=== PATIENT | female | born 1935 | race Caucasian/White ===

== ENCOUNTER 2021-01-13 06:52 | Emergency (ER) | payer OTHER ==
[~2021-01-13] VITALS: Ht 154.9 cm; Wt 62.1 kg
[2021-01-13 07:02] VITALS: BP_SYST 163; BP_SYST 187; BP_DIAS 79; BP_DIAS 85
--- NOTE | 2021-01-13 07:02 | NUR ---
TO BED AMBULATORY
--- NOTE | 2021-01-13 07:20 | NUR ---
PT REPORTS SHE HAD X1 EPISODE OF VOMITTING WITH A LARGE AMOUNT OF LOOSE DARK BLOOD THIS MORNING. DENIES CHEST PAIN, COUGH, SOB, BLEEDING, BRUSIES, RASH, EDEMA. NO ADVENTITIOUS SOUNDS IN LUNGS BILATERALLY. S1 & S2 PRESENT, NO EDEMA NOTED. PMH: HYPERLIPIDEMIA, HTN, ARTHRITIS. RX: LISINOPRIL, ASPIRIN, SIMVASTATIN, GLUCOSAMINE. NKA Addendum: 01/13/21 at 0813 by [email or web address] PT REPORTS SHE HAD X1 EPISODE OF COUGHING WITH A LARGE AMOUNT OF LOOSE DARK BLOOD THIS MORNING. DENIES CHEST PAIN, COUGH, SOB, BLEEDING, BRUSIES, RASH, EDEMA. NO ADVENTITIOUS SOUNDS IN LUNGS BILATERALLY. S1 & S2 PRESENT, NO EDEMA NOTED. PMH: HYPERLIPIDEMIA, HTN, ARTHRITIS. RX: LISINOPRIL, ASPIRIN, SIMVASTATIN, GLUCOSAMINE. NKA
--- NOTE | 2021-01-13 07:32 | NUR ---
Patient being evaluated by Dr. Ramos at bedside.
--- NOTE | 2021-01-13 07:45 | NUR ---
RAD AT BEDSIDE
[2021-01-13] MEDS ORDERED: NACL 0.9% 1,000 ML IV ONE ×2 (08:45→09:45)
--- NOTE | 2021-01-13 08:56 | NUR ---
CT consent signed by patient and placed in chart.
[2021-01-13 09:17] LABS: BASOPHILS % (AUTO) 0.4 % (0.0-2.0); EOSINOPHILS # (AUTO) 0.1 K/uL (0-0.4); EOSINOPHILS % (AUTO) 0.8 % (0.0-4.0); HEMATOCRIT 39.6 % (36-48); LYMPHOCYTES # (AUTO) 1.6 K/uL (2.5-16.5); LYMPHOCYTES % (AUTO) 22.7 % (20.5-51.1); MEAN CORPUSCULAR HEMOGLOBIN 31 pg (27-31); MEAN CORPUSCULAR HGB CONC 33 g/dL (33-37); MEAN CORPUSCULAR VOLUME 95.2 fL (80-94); MONOCYTES # (AUTO) 0.4 K/uL (0.8-1.0); MONOCYTES % (AUTO) 6.3 % (1.7-9.3); NEUTROPHILS # (AUTO) 4.8 K/uL (1.8-7.7); NEUTROPHILS % (AUTO) 69.8 % (42.2-75.2); PLATELET COUNT (AUTO) 202 K/uL (140-450); RED BLOOD CELL COUNT(AUTO) 4.16 MIL/uL (4.20-5.40); WHITE BLOOD COUNT (AUTO) 6.9 K/uL (4.8-10.8)
--- NOTE | 2021-01-13 09:20 | NUR ---
PT COMFORTABLY LYING IN LOCKED BED AT THE LOWEST POSITION X1 RAIL, WITH NO NEEDS. PT REPORTS SHE HAS NOT TAKEN HER HTN RX THIS MORNING BUT DENIES SX OF HEADACHE, SOB, FLUSHING, DIZZINESS, CHEST PAIN.
[2021-01-13 09:34] LABS: ANION GAP 13.4 (8-16); CARBON DIOXIDE 29.6 mmol/L (21-32); CHLORIDE 102 mmol/L (98-107); GLUCOSE 142 mg/dL (74-106); SODIUM SERUM 141 mmol/L (136-145); UREA NITROGEN, BLOOD 19 mg/dL (7-18)
--- NOTE | 2021-01-13 09:40 | NUR ---
PT WENT TO CT VIA [facility].
--- NOTE | 2021-01-13 10:05 | NUR ---
PT RETURNED FROM CT. LYING IN LOCKED BED AT THE LOWEST POSITION X1 RAIL, WITH NO NEEDS. ON PULSE OX AND B/P CUFF, WILL CONTINUE TO MONITOR.
[2021-01-13] MEDS ORDERED: LEVO500T98 PO (11:25)
--- NOTE | 2021-01-13 11:30 | NUR ---
SPOKE WITH PTS DAUGHTER REGARDING PT D/C AND PROGRAM ATTENDANT. DAUGHTER MADE AWARE THAT PT WILL BE WAITING IN ER LOBBY.
[2021-01-13 11:40] VITALS: BP 174/69
--- NOTE | 2021-01-13 11:40 | NUR ---
Patient discharged with v/s stable. Written and verbal after care instructions given and explained. Patient alert, oriented and verbalized understanding of instructions. Ambulatory with steady gait. All questions addressed prior to discharge. ID band removed. Patient advised to follow up with PMD. Rx of LEVOFLOAXCIN given. Patient educated on indication of medication including possible reaction and side effects. Opportunity to ask questions provided and answered.
== END 2021-01-13 11:40 | disposition home or self-care (01) ==
LOC: MED 06:52
DX: J47.9 Bronchiectasis, uncomplicated (principal); R04.2 Hemoptysis; I10 Essential (primary) hypertension
CPT/HCPCS: 36415; 71045; 71260; 80048; 85025; 96360; 99285; J7030; Q9967

== ENCOUNTER 2021-01-26 23:58 | Emergency (ER) | payer OTHER ==
[~2021-01-26] VITALS: Ht 154.9 cm; Wt 62.1 kg
[~2021-01-26 23:58] MED LIST: LEVO500T98 PO
[2021-01-27 00:04] VITALS: BP 208/92
--- NOTE | 2021-01-27 00:04 | NUR ---
TO BED AMBULATORY
[2021-01-27] MEDS ORDERED: CLONIDINE HYDROCHLORIDE 0.1 MG TAB PO ONE ×2 (00:15→01:30)
--- NOTE | 2021-01-27 00:16 | NUR ---
Dr. Sharma examining patient.
--- NOTE | 2021-01-27 00:30 | NUR ---
85 y/o female brought in by kristie to ED c/o of high blood pressure initially 180's at home then increased to 190's since am. During triage her bp was 200's no headache, no chest pain, and no sob noted. No pain noted afebrile. Patient had episode of nausea x 1 today no vomitting. Able to speak full sentence, daughter at bedside. All safety measures provided. PMH HTN NKDA
[2021-01-27 00:42] LABS: BASOPHILS # (AUTO) 0.1 K/uL (0.00-0.22); BASOPHILS % (AUTO) 0.6 % (0.0-2.0); EOSINOPHILS # (AUTO) 0.3 K/uL (0-0.4); HEMOGLOBIN 12.1 g/dL (12.0-16.0); LYMPHOCYTES # (AUTO) 3.6 K/uL (2.5-16.5); LYMPHOCYTES % (AUTO) 38.3 % (20.5-51.1); MEAN CORPUSCULAR HEMOGLOBIN 32 pg (27-31); MEAN CORPUSCULAR HGB CONC 34 g/dL (33-37); MEAN CORPUSCULAR VOLUME 94.4 fL (80-94); MONOCYTES # (AUTO) 0.8 K/uL (0.8-1.0); MONOCYTES % (AUTO) 8.4 % (1.7-9.3); NEUTROPHILS # (AUTO) 4.6 K/uL (1.8-7.7); NEUTROPHILS % (AUTO) 49.7 % (42.2-75.2); PLATELET COUNT (AUTO) 203 K/uL (140-450); RED BLOOD CELL COUNT(AUTO) 3.81 MIL/uL (4.20-5.40); RED CELL DISTRIBUTION WIDTH 14.3 % (11.6-13.7); WHITE BLOOD COUNT (AUTO) 9.3 K/uL (4.8-10.8)
--- NOTE | 2021-01-27 00:46 | NUR ---
X-Ray at bedside.
--- NOTE | 2021-01-27 00:50 | NUR ---
Pt ambulated to restroom
[2021-01-27 01:00] LABS: ALBUMIN 3.8 g/dL (3.4-5.0); ANION GAP 11.8 (8-16); ASPARTATE AMINOTRANSFERASE 18 U/L (15-37); CARBON DIOXIDE 26.8 mmol/L (21-32); CHLORIDE 103 mmol/L (98-107); GLUCOSE 136 mg/dL (74-106); POTASSIUM 3.6 mmol/L (3.5-5.1); SODIUM SERUM 138 mmol/L (136-145); TOTAL BILIRUBIN 0.5 mg/dL (0.0-1.0); UREA NITROGEN, BLOOD 22 mg/dL (7-18)
[2021-01-27] MEDS ORDERED: hydrALAZINE 20 MG/ML VIAL IVP ONE (01:25)
[2021-01-27] MEDS ORDERED: CLON0.1T15 PO (01:59)
[2021-01-27 02:30] VITALS: BP 111/50
--- NOTE | 2021-01-27 02:30 | NUR ---
Patient discharged with v/s stable. Written and verbal after care instructions given and explained. Patient alert, oriented and verbalized understanding of instructions. Ambulatory with steady gait. All questions addressed prior to discharge. ID band removed. Patient advised to follow up with PMD. Rx of clonidine given. Patient educated on indication of medication including possible reaction and side effects. Opportunity to ask questions provided and answered. Accompanied by daughter on d/c.
== END 2021-01-27 02:30 | disposition home or self-care (01) ==
LOC: MED 01-27 00:05
DX: I10 Essential (primary) hypertension (principal); Z79.899 Other long term (current) drug therapy
CPT/HCPCS: 36415; 71045; 80053; 84484; 85025; 93005; 99285

== ENCOUNTER 2021-02-23 06:00 | Inpatient (IN) | payer OTHER, SELFPAY ==
[~2021-02-23] VITALS: Ht 157.5 cm; Wt 62.1 kg
[~2021-02-23 06:00] MED LIST changes: +CLON0.1T15 PO
[2021-02-23 06:25] VITALS: BP 186/91
--- NOTE | 2021-02-23 06:31 | NUR ---
TO BED 7, AMBULATORY Addendum: 02/23/21 at 0722 by SREEDHAR Amendment undaline in EDM - 02/23/21 at 0723 by SREEDHAR RT AT BEDSIDE FOR BREATHING TREATMENT
--- NOTE | 2021-02-23 06:46 | NUR ---
85 Y/O FEMALE CAME TO THE ED WITH DAUGHTER FOR COUGH X DAYS. PT STATES THROAT PAIN OF 5/10 C/O COUGH. PER PT, SHE HAS A SCANTY AMOUNT OF BLOOD IN THE PHLEGM. DENIES N/V/D; SKIN IS PINK/WARM/DRY; AAOX4 WITH EVEN AND STEADY GAIT; LUNGS CLEAR BL; HR EVEN AND REGULAR; VSS; PATIENT POSITIONED FOR COMFORT; HOB ELEVATED; BEDRAILS UP X2; BED DOWN. ER MADE AWARE OF PT STATUS. PMH: HTN NKA Addendum: 02/23/21 at 0715 by [email or web address] COUGH X 3 DAYS
[2021-02-23] MEDS ORDERED: methylPREDNISolone SS 125 MG/2 ML VIAL IM ONE (06:50)
[2021-02-23] MEDS ORDERED: ALBUTEROL SULFATE/IPRATROPIU 3 ML SOL IH ONE (06:50)
--- NOTE | 2021-02-23 06:52 | NUR ---
EKG PERFORMED AT BEDSIDE. EKG READS SINUS RHYTHM @ 95
[2021-02-23 07:06] LABS: BASOPHILS # (AUTO) 0.1 K/uL (0.00-0.22); BASOPHILS % (AUTO) 0.6 % (0.0-2.0); EOSINOPHILS # (AUTO) 0.2 K/uL (0-0.4); EOSINOPHILS % (AUTO) 1.4 % (0.0-4.0); HEMATOCRIT 34.3 % (36-48); HEMOGLOBIN 11.2 g/dL (12.0-16.0); LYMPHOCYTES # (AUTO) 1.5 K/uL (2.5-16.5); MEAN CORPUSCULAR HEMOGLOBIN 30 pg (27-31); MEAN CORPUSCULAR HGB CONC 33 g/dL (33-37); MEAN CORPUSCULAR VOLUME 93.1 fL (80-94); MONOCYTES # (AUTO) 1.1 K/uL (0.8-1.0); MONOCYTES % (AUTO) 6.3 % (1.7-9.3); NEUTROPHILS # (AUTO) 13.9 K/uL (1.8-7.7); NEUTROPHILS % (AUTO) 82.7 % (42.2-75.2); PLATELET COUNT (AUTO) 218 K/uL (140-450); RED BLOOD CELL COUNT(AUTO) 3.68 MIL/uL (4.20-5.40); RED CELL DISTRIBUTION WIDTH 13.4 % (11.6-13.7); WHITE BLOOD COUNT (AUTO) 16.8 K/uL (4.8-10.8)
--- NOTE | 2021-02-23 07:14 | NUR ---
GIVEN REPORT TO ARRON LANG, FOR CONTINUITY OF CARE
--- NOTE | 2021-02-23 07:23 | NUR ---
RT AT BEDSIDE FOR BREATHING TREATMENT
[2021-02-23 07:25] LABS: ALBUMIN 3.4 g/dL (3.4-5.0); ANION GAP 11.7 (8-16); ASPARTATE AMINOTRANSFERASE 18 U/L (15-37); CHLORIDE 98 mmol/L (98-107); CREATININE 0.9 mg/dL (0.6-1.3); GLUCOSE 164 mg/dL (74-106); POTASSIUM 3.7 mmol/L (3.5-5.1); SODIUM SERUM 132 mmol/L (136-145); TOTAL BILIRUBIN 0.6 mg/dL (0.0-1.0); UREA NITROGEN, BLOOD 11 mg/dL (7-18)
--- NOTE | 2021-02-23 08:59 | NUR ---
PT TAKEN TO CT AT THIS TIME
[2021-02-23 09:06] LABS: PROTHROMBIN TIME 9.8 secs (10.8-13.4)
--- NOTE | 2021-02-23 09:22 | NUR ---
PT CANNOT URINATE AT THIS TIME
--- NOTE | 2021-02-23 09:45 | NUR ---
PATIENT AMBULATED TO RESTROOM AND URINE SPECIMEN COLLECTED
[2021-02-23 10:16] LABS: APPEARANCE,URINE HAZY (CLEAR); BILIRUBIN,URINE NEGATIVE (NEGATIVE); BLOOD, URINE TRACE-I (NEGATIVE); COLOR,URINE YELLOW (YELLOW); LEUKOCYTE ESTERASE ,URINE 1+ (NEGATIVE); NITRITE, URINE POSITIVE (NEGATIVE); PH,URINE 5.5 (5.0-9.0); UGLUCOSE 1+ (NEGATIVE)
[2021-02-23] MEDS ORDERED: LISI40TA12 PO (11:27)
[2021-02-23] MEDS ORDERED: ASPI-1884 PO (11:27)
[2021-02-23] MEDS ORDERED: SIMV20TA1 PO (11:27)
[2021-02-23] MEDS ORDERED: cefTRIAXone 1,000 MG VIAL ONE (11:28)
[2021-02-23] MEDS ORDERED: ONDANSETRON 4 MG/2 ML VIAL IVP PRN (11:45)
[2021-02-23] MEDS ORDERED: ALBUTEROL 0.083% 2.5 MG/3 ML NEBU INH PRN (11:45)
[2021-02-23] MEDS ORDERED: ACETAMINOPHEN 325 MG TAB PO PRN (11:45)
[2021-02-23] MEDS: ALBUTEROL 0.083% 2.5 MG/3 ML NEBU INH SCH ×2 (12:33→19:57)
[2021-02-23] MEDS: IPRATROPIUM 0.02% 0.5 MG/2.5 ML NEBU INH SCH ×2 (13:00→19:57)
--- NOTE | 2021-02-23 14:00 | NUR ---
RECEIVED REPORT FROM ER NURSE PATIENT IS AAOX4 ON ROOM AIR AMBULATORY WITH CANE, SKIN INTACT , CONTINENT, WITH BREATHING TREATMENT COVID 19 EYAL NEGATIVE, IV INTACT ON LEFT AC SALINE LOCK, VITAL SIGNS STABLE.
--- NOTE | 2021-02-23 14:33 | NUR ---
DC PLANNIN85 YEAR OLD FEMALE PATIENT WAS ADMITTED FROM HOME WITH A DX OF PNEUMONIA PT HAS A HX OF TB, AND HTN CXR SHOWED NO EVIDENCE FOR ACUTE CARDIOPULMONARY DISEASE. CT CHEST NO PE. RAPID COVID TEST NEGATIVE. ADMINISTERED IV ABX ROCEPHIN AND AZITHROMYCIN AND CONTINUE HOME MEDS. DC PLAN TO GO HOME WHEN STABLE CM TO FOLLOW
--- NOTE | 2021-02-23 14:57 | NUR ---
Patient will be admitted to [facility]. Admited to TELE. Will go to room 121A. Belongings list completed. Report to JADIEL LANG.
[2021-02-23] MEDS ORDERED: AZITHROMYCIN 500 MG INJ VIAL IV ONE (14:59)
[2021-02-23] MEDS: AZITHROMYCIN 500 MG in DEXTROSE 5% 250 ML IV SCH (15:42)
[2021-02-23 16:30] VITALS: BP 156/60
--- NOTE | 2021-02-23 16:30 | NUR ---
RECEIVED PT FROM THE UNIT VIA [facility] PATIENT AMBULATORY, ASSISTED TO BED ORIENTED TO ROOM, CHECK VITAL SIGNS BP 156/60 WI 93 RR 20 TEMP 98 OXYGEN SATURATION 95%. PT IS STABLE.
--- NOTE | 2021-02-23 16:58 | NUR ---
MRSA OF THE NARES DONE AND SENT TO LAB.
--- NOTE | 2021-02-23 19:20 | NUR ---
RECEIVED PT FROM AM SHIFT RN. ON BED SITTING AO X4, NO DISTRESS, RESPIRATION EVEN UNLABORED. CALL LIGHT WITHIN REACH. WILL CONTINUE TO MONITOR.
--- NOTE | 2021-02-23 19:42 | NUR ---
ENDORSED TO TRAINS DISPATCHER SUPERVISOR FOR CONTINUITY OF CARE. PT STABLE
[2021-02-23 20:00] VITALS: BP 138/52
--- NOTE | 2021-02-23 20:02 | NUR ---
PT SEEN AND ASSESSED. FOUND PT ON ROOM AIR, SPO2 97%. PT IS IN NO RESPIRATORY DISTRESS AT THIS TIME. HHN TX GIVEN, PT TOLERATED TX WELL, NO ADVERSE REACTION. WILL CONTINUE TO MONITOR PT.
[2021-02-23] MEDS: SIMVASTATIN 20 MG TAB PO SCH (21:15)
--- NOTE | 2021-02-23 21:15 | NUR ---
SCHEDULED MEDICATION ADMINISTERED ORDERED. DENIES PAIN. CALL LIGHT WITHIN REACH.
[2021-02-24] VITALS: BP 148/67
[2021-02-24] MEDS: IPRATROPIUM 0.02% 0.5 MG/2.5 ML NEBU INH SCH ×4 (00:40→19:15)
[2021-02-24] MEDS: ALBUTEROL 0.083% 2.5 MG/3 ML NEBU INH SCH ×4 (00:40→19:15)
--- NOTE | 2021-02-24 00:44 | NUR ---
PT IS IN NO RESPIRATORY DISTRESS AT THIS TIME. HHN TX GIVEN, PT TOLERATED TX WELL, NO ADVERSE REACTION. WILL CONTINUE TO MONITOR PT.
--- NOTE | 2021-02-24 02:00 | NUR ---
MADE ROUNDS PT SLEEPING IN NO ACUTE DISTRESS .
[2021-02-24 04:00] VITALS: BP 148/61
[2021-02-24 06:06] LABS: ALBUMIN 3.1 g/dL (3.4-5.0); ANION GAP 10.7 (8-16); ASPARTATE AMINOTRANSFERASE 18 U/L (15-37); CARBON DIOXIDE 27.3 mmol/L (21-32); CHLORIDE 96 mmol/L (98-107); CREATININE 0.9 mg/dL (0.6-1.3); GLUCOSE 154 mg/dL (74-106); MAGNESIUM 1.8 mg/dL (1.8-2.4); SODIUM SERUM 130 mmol/L (136-145); TOTAL BILIRUBIN 0.3 mg/dL (0.0-1.0); UREA NITROGEN, BLOOD 14 mg/dL (7-18)
[2021-02-24 06:19] LABS: HEMATOCRIT 31.7 % (36-48); HEMOGLOBIN 10.5 g/dL (12.0-16.0); LYMPHOCYTES # (AUTO) 1.1 K/uL (2.5-16.5); LYMPHOCYTES % (AUTO) 8.6 % (20.5-51.1); MEAN CORPUSCULAR HEMOGLOBIN 31 pg (27-31); MEAN CORPUSCULAR HGB CONC 33 g/dL (33-37); MEAN CORPUSCULAR VOLUME 93.6 fL (80-94); MONOCYTES # (AUTO) 0.5 K/uL (0.8-1.0); NEUTROPHILS # (AUTO) 11.2 K/uL (1.8-7.7); NEUTROPHILS % (AUTO) 87.4 % (42.2-75.2); PLATELET COUNT (AUTO) 219 K/uL (140-450); RED BLOOD CELL COUNT(AUTO) 3.38 MIL/uL (4.20-5.40); RED CELL DISTRIBUTION WIDTH 13.5 % (11.6-13.7); WHITE BLOOD COUNT (AUTO) 12.8 K/uL (4.8-10.8)
--- NOTE | 2021-02-24 07:24 | NUR ---
ENDORSED TO AM SHIFT RN FOR CONTINUITY OF CARE IN STABLE CONDITION.
--- NOTE | 2021-02-24 07:25 | NUR ---
PT RECEIVED FROM MANUFACTURING TECHNICIAN RN. PT RESTING IN BED EYES CLOSED NO S/S OF DISTRESS. IV IS DRY CLEAN AND INTACT. CALL LIGHT IS WITHIN REACH ALL SAFETY MEASURES ARE IN PLACE.
[2021-02-24 08:00] VITALS: BP 147/54
[2021-02-24] MEDS: ASPIRIN 81 MG TAB.CHEW PO SCH (08:32)
[2021-02-24] MEDS: lisinopriL 20 MG TAB PO SCH (08:33)
[2021-02-24] MEDS: ENOXAPARIN 40 MG/0.4 ML SYR SUBQ SCH (08:37)
--- NOTE | 2021-02-24 08:40 | NUR ---
MEDICATIONS GIVEN PER MD ORDER. PT EDUCATED. PT VERBALIZED UNDERSTANDING.PT TOLERATED WELL. NO S/S OF DISTRESS. PT IN BED EATING BREAKFAST. DENIES PAIN AT THIS TIME. CALL LIGHT WITHIN REACH.
[2021-02-24] MEDS ORDERED: BENZONATATE 100 MG CAPLF PO SCH (09:00)
--- NOTE | 2021-02-24 09:02 | NUR ---
PATIENT HAS BEEN SCREENED AND CATEGORIZED MODERATE NUTRITION RISK. PATIENT WILL BE SEEN WITHIN 3-5 DAYS OF ADMISSION. 02/25/21 02/27/[address]
--- NOTE | 2021-02-24 10:11 | NUR ---
MD AT BEDSIDE EXPLAINING PLAN OF CARE.
--- NOTE | 2021-02-24 11:15 | NUR ---
SPUTUM CULTURE COLLECTED PER MD ORDER. SENT TO LAB
--- NOTE | 2021-02-24 11:28 | NUR ---
PT PROVIDED NEW GOWN , CLEANSINGS WIPES AND ORAL CARE . PT PERFORMED INDEPENDENTLY AND TOLERATED WELL. NO S/S OF DISTRESS
--- NOTE | 2021-02-24 11:34 | NUR ---
PT AMBULATED TO RESTROOM TOLERATED WELL. STAND BY ASSISTANCE PROVIDED. PT BACK IN BED WATCHING [employer]AT MAKING VIDEOS. ALL SAFETY MEASURES ARE IN PLACE.
--- NOTE | 2021-02-24 11:56 | NUR ---
PT ASSISTED WITH PUTTING ON LEADS FOR TELE. PT EDUCATED ON IMPORTANCE OF KEEPING THEM ON.
--- NOTE | 2021-02-24 12:20 | NUR ---
PT IN BED EATIN TOLERATING WELL. DENIES PAIN AT THIS TIME
[2021-02-24 13:00] VITALS: BP 141/58
[2021-02-24] MEDS: AZITHROMYCIN 500 MG in DEXTROSE 5% 250 ML IV SCH (13:29)
--- NOTE | 2021-02-24 13:30 | NUR ---
MEDICATIONS GIVEN PER MD ORDER. PT EDUCATED. PT VERBALIZED UNDERSTANDING.PT TOLERATED WELL. NO S/S OF DISTRESS. PT RESTING IN BED ON SIDE
--- NOTE | 2021-02-24 14:15 | NUR ---
PTS IV SITE ASSESSED. CLEAR DRY AND INTACT. PT TOLERATING ANTIBIOTIC WELL DENIES PAIN , ITCHING, SOB, OR RASHES.
[2021-02-24 16:00] VITALS: BP 126/66
--- NOTE | 2021-02-24 16:05 | NUR ---
PT HOA ON EDGE OF ON CELL PHONE PT REQUEST WARM BLANKET . BLANKET PROVIDED
--- NOTE | 2021-02-24 17:28 | NUR ---
PT OFFERED SNACKS PT REFUSED. PT IN BED RESTING COMFORTABLY. NO S/S OF DISTRESS.
--- NOTE | 2021-02-24 19:05 | NUR ---
PT ENDORSED TO SUPERVISOR WET ROOM RN FOR CONTINUITY OF CARE.
--- NOTE | 2021-02-24 19:14 | NUR ---
RECEIVED PT FROM MORNING SHIFT RN. SITTING ON BED JUST FINISHED HER DINNER ATE 95%. NO DISTRESS/SOB. IV SITE ON THE LAC INTACT. SKIN WARM AND DRY TO TOUCH CALL LIGHT WITHIN REACH.
[2021-02-24 20:00] VITALS: BP 155/61
[2021-02-24] MEDS: guaiFENesin 600 MG TABER PO SCH (20:40)
[2021-02-24] MEDS: SIMVASTATIN 20 MG TAB PO SCH (20:40)
--- NOTE | 2021-02-24 20:40 | NUR ---
DUE MEDS GIVEN PER MD. PT ON BED RESTING COMFORTABLY. NO SHORTNESS OF BREATH. CALL LIGHT WITHIN REACH
[2021-02-25] VITALS: BP 146/63
[2021-02-25] MEDS: IPRATROPIUM 0.02% 0.5 MG/2.5 ML NEBU INH SCH ×2 (01:00→07:46)
[2021-02-25] MEDS: ALBUTEROL 0.083% 2.5 MG/3 ML NEBU INH SCH ×2 (01:00→07:47)
[2021-02-25 04:00] VITALS: BP 157/67
[2021-02-25 06:11] LABS: ANION GAP 8.3 (8-16); CARBON DIOXIDE 29.9 mmol/L (21-32); CHLORIDE 102 mmol/L (98-107); GLUCOSE 109 mg/dL (74-106); POTASSIUM 4.2 mmol/L (3.5-5.1); SODIUM SERUM 136 mmol/L (136-145); UREA NITROGEN, BLOOD 22 mg/dL (7-18)
[2021-02-25 06:48] LABS: BASOPHILS % (AUTO) 0.4 % (0.0-2.0); EOSINOPHILS # (AUTO) 0.2 K/uL (0-0.4); EOSINOPHILS % (AUTO) 1.3 % (0.0-4.0); HEMATOCRIT 33.5 % (36-48); LYMPHOCYTES # (AUTO) 2.8 K/uL (2.5-16.5); LYMPHOCYTES % (AUTO) 23.8 % (20.5-51.1); MEAN CORPUSCULAR HEMOGLOBIN 31 pg (27-31); MEAN CORPUSCULAR HGB CONC 33 g/dL (33-37); MEAN CORPUSCULAR VOLUME 92.7 fL (80-94); MONOCYTES % (AUTO) 8.8 % (1.7-9.3); NEUTROPHILS # (AUTO) 7.8 K/uL (1.8-7.7); NEUTROPHILS % (AUTO) 65.7 % (42.2-75.2); PLATELET COUNT (AUTO) 240 K/uL (140-450); RED BLOOD CELL COUNT(AUTO) 3.61 MIL/uL (4.20-5.40); RED CELL DISTRIBUTION WIDTH 13.9 % (11.6-13.7); WHITE BLOOD COUNT (AUTO) 11.8 K/uL (4.8-10.8)
--- NOTE | 2021-02-25 07:15 | NUR ---
ENDORSED TO THE MORNING SHIFT RN FOR CONTINUITY OF CARE IN STABLE CONDITION.
--- NOTE | 2021-02-25 07:17 | NUR ---
RECEIVED BEDSIDE REPORT FROM STEREO COMPILER NURSE FOR CONTINUITY OF CARE. PATIENT IS AO X4, ABLE TO MAKE NEEDS KNOWN. RESPIRATIONS EVEN AND UNLABORED. ON ROOM AIR AND NO DISTRESS NOTED. SKIN IS INTACT, WARM, AND DRY. IV SITE ON LAC 20 G SALINE LOCKED. INTACT AND PATENT. AMB WITH CANE. PLAN OF CARE DISCUSSED. SAFETY PRECAUTIONS IN PLACE. CALL LIGHT WITHIN REACH. WILL CONTINUE TO MONITOR.
[2021-02-25 08:00] VITALS: BP 150/75
[2021-02-25] MEDS: ASPIRIN 81 MG TAB.CHEW PO SCH (08:37)
[2021-02-25] MEDS: lisinopriL 20 MG TAB PO SCH (08:37)
[2021-02-25] MEDS: guaiFENesin 600 MG TABER PO SCH (08:38)
[2021-02-25] MEDS: ENOXAPARIN 40 MG/0.4 ML SYR SUBQ SCH (08:38)
--- NOTE | 2021-02-25 08:45 | NUR ---
ALL SCHEDULE MEDS GIVEN. PT IS STABLE. NO DISTRESS NOTED. WILL CONTINUE TO MONITOR.
[2021-02-25] MEDS ORDERED: LEVO500T98 PO (09:04)
[2021-02-25] MEDS ORDERED: GUAI-791 PO (09:04)
[2021-02-25] MEDS ORDERED: levaquin (09:04)
--- NOTE | 2021-02-25 09:04 | NUR ---
NEW DISCHARGE ORDERS RECEIVED. PATIENT AND PATIENT'S FAMILY ALREADY NOTIFIED BY .
[2021-02-25 10:04] VITALS: BP 150/75
--- NOTE | 2021-02-25 10:25 | NUR ---
DISCUSSED DISCHARGE INSTRUCTIONS WITH PATIENT. PATIENT VERBALIZED UNDERSTANDING AND SIGNED THE FORMS. AWAITING FOR DAUGHTER TO PICK PATIENT UP.
--- NOTE | 2021-02-25 10:41 | NUR ---
PT DISCHARGED OFF THE UNIT. DAUGHTER PICKED UP PATIENT AT THE FRONT LOBBY. PT STABLE PRIOR TO DISCHARGE.
== END 2021-02-25 10:40 | disposition home or self-care (01) | DRG 140 ==
LOC: MED 06:00 → MTU 11:48
PROVIDERS: ADMIT Internal Medicine; ATTEND Internal Medicine
DX: J47.0 Bronchiectasis with acute lower respiratory infection (principal); J15.9 Unspecified bacterial pneumonia; J47.1 Bronchiectasis with (acute) exacerbation; N39.0 Urinary tract infection, site not specified; I10 Essential (primary) hypertension; Z86.11 Personal history of tuberculosis; R91.1 Solitary pulmonary nodule; Z20.822 Contact with and (suspected) exposure to COVID-19
CPT/HCPCS: 36415; 71045; 71275; 80048; 80053; 81001; 83605; 83735; 83880; 84484; 85025; 85379; 85610; 85730; 87040; 87070; 87081; 87086; 87186; 87205; 93005; 94640; 96365; 96372; 96375; 99285; J0456; J0696; J1650; J2930; J7060; J7613; J7644; Q9967

== ENCOUNTER 2021-12-22 20:35 | Inpatient (IN) | payer OTHER, MEDICARE, SELFPAY ==
[~2021-12-22] VITALS: Ht 157.5 cm; Wt 63.5 kg
[~2021-12-22 20:35] MED LIST changes: +ASPI-1749 PO; -CLON0.1T15 PO; +GUAI-791 PO; +LEVO-315 PO; -LEVO500T98 PO; +LISI40TA12 PO; +SIMV20TA1 PO; +levaquin
[2021-12-22 20:38] VITALS: BP 183/74
--- NOTE | 2021-12-22 21:57 | NUR ---
PATIENT PRESENTS TO ED WITH bloody cough . PT STATES SHE WAS COUGHING AND COUGHED BLOOD IN SINK. BIB DAUGHTER FROM HOME. DENIES N/V/D; SKIN IS PINK/WARM/DRY; AAOX4 WITH AMBULATORY WITH CANE; LUNGS CLEAR BL; HR EVEN AND REGULAR; PT DENIES ANY FEVER, CP, SOB, OR COUGH AT THIS TIME; PATIENT STATES PAIN OF 0/10 AT THIS TIME; VSS; PATIENT POSITIONED FOR COMFORT; HOB ELEVATED; BEDRAILS UP X2; BED DOWN. DAUGHTER AT BEDSIDE ER MD MADE AWARE OF PT STATUS. PMH:HTN , ARTHIRITIS RX: SIMVASTATIN, LISINOPRIL, ASPIRIN
--- NOTE | 2021-12-22 22:00 | NUR ---
XRAY AT BEDSIDE
[2021-12-22] MEDS ORDERED: NACL 0.9% 1,000 ML IV ONE (22:40)
[2021-12-22] MEDS ORDERED: methylPREDNISolone SS 125 MG in WATER STERILE 2 ML IV ONE (22:40)
[2021-12-22 22:41] LABS: BASOPHILS # (AUTO) 0.2 K/uL (0.00-0.22); BASOPHILS % (AUTO) 2.9 % (0.0-2.0); EOSINOPHILS % (AUTO) 0.6 % (0.0-4.0); LYMPHOCYTES % (AUTO) 12.9 % (20.5-51.1); MEAN CORPUSCULAR HEMOGLOBIN 31 pg (27-31); MEAN CORPUSCULAR HGB CONC 33 g/dL (33-37); MEAN CORPUSCULAR VOLUME 93.6 fL (80-94); MONOCYTES # (AUTO) 0.7 K/uL (0.8-1.0); MONOCYTES % (AUTO) 8.4 % (1.7-9.3); NEUTROPHILS % (AUTO) 75.2 % (42.2-75.2); PLATELET COUNT (AUTO) 165 K/uL (140-450); RED BLOOD CELL COUNT(AUTO) 3.85 MIL/uL (4.20-5.40); RED CELL DISTRIBUTION WIDTH 14.3 % (11.6-13.7)
[2021-12-22 22:58] LABS: ANION GAP 14.6 (8-16); CARBON DIOXIDE 27.3 mmol/L (21-32); CHLORIDE 102 mmol/L (98-107); CREATININE 0.9 mg/dL (0.6-1.3); GLUCOSE 129 mg/dL (74-106); POTASSIUM 3.9 mmol/L (3.5-5.1); SODIUM SERUM 140 mmol/L (136-145); UREA NITROGEN, BLOOD 19 mg/dL (7-18)
[2021-12-22] MEDS ORDERED: methylPREDNISolone SS 125 MG/2 ML VIAL ONE (23:49)
[2021-12-23] VITALS (7 sets, daily range): BP systolic 140–181; BP diastolic 56–95
[2021-12-23] MEDS ORDERED: ENALAPRILAT 2.5 MG/2 ML VIAL IVP ONE (00:15)
--- NOTE | 2021-12-23 01:15 | NUR ---
daughter left bedside. pt sleeping with x2 side rails up
[2021-12-23] MEDS ORDERED: PIPERACILLIN/TAZOBACTAM 3.375 GM in DEXTROSE 5% 50 ML IV ONE (01:20)
--- NOTE | 2021-12-23 01:27 | NUR ---
TALKED TO ADMITTING AND CONFIRMED ADMISSION GOES TO [facility] AND PAGED DR MANCIA FOR ADMISSION
[2021-12-23] MEDS ORDERED: PIPERACILLIN/TAZOBACTAM 3.375 GM VIAL IV ONE (01:53)
[2021-12-23] MEDS ORDERED: HYDROcodone/APAP 5/325 MG 1 TAB TAB PO PRN (02:00)
[2021-12-23] MEDS ORDERED: ACETAMINOPHEN 325 MG TAB PO PRN (02:00)
--- NOTE | 2021-12-23 02:19 | NUR ---
Patient appears to be resting comfortably in bed. lying lateral .Vital Signs within normal limits. Respirations even and unlabored.
--- NOTE | 2021-12-23 03:13 | NUR ---
pt ketty swab given to poultry farm laborer vandana. changed pt diaper . pt iv lines running and intact
--- NOTE | 2021-12-23 04:50 | NUR ---
RECEIVED PATIENT FROM ER. PATIENT AMBULATORY FROM WHEELCHAIR TO BED, USING CANE, GAIT STEADY. BREATHING EVEN AND UNLABORED ON ROOM AIR. RESUMED IV FLUIDS AT DESIRED RATE. ORIENTED TO ROOM AND SAFETY MEASURES INITIATED, ADVISED TO USE CALL LIGHT FOR ANY NEEDS. BP ELEVATED AT 175 SBP, ALLOWED TO REST FOR AWHILE AND WILL RECHECK VITALS. ADMISSION DOCUMENTATIONS DONE. MRSA SWAB DONE AND SENT TO LAB.
[2021-12-23] MEDS ORDERED: PIPERACILLIN/TAZOBACTAM 3.375 GM in DEXTROSE 5% 50 ML IV SCH (05:00)
--- NOTE | 2021-12-23 05:06 | NUR ---
Patient will be admitted to care of DR. MANCIA. Admited to MED SURG. Will go to room 106B. Belongings list completed. Report to
--- NOTE | 2021-12-23 05:10 | NUR ---
The patient's care was reviewed and supervised by MEHREEN NEFF RN.
[2021-12-23] MEDS ORDERED: PIPERACILLIN/TAZOBACTAM 2.25 GM VIAL IV ONE (06:09)
--- NOTE | 2021-12-23 06:15 | NUR ---
PATIENT BP RECHECKED AND STILL ELEVATED AT 181/62, MD MADE AWARE, AWAITING ORDERS. PRN TYLENOL GIVEN FOR HEADACHE. WILL CONTINUE TO MONITOR PATIENT.
[2021-12-23] MEDS: PIPERACILLIN/TAZOBACTAM 2.25 GM in DEXTROSE 5% 50 ML IV SCH ×4 (06:24→23:42)
--- NOTE | 2021-12-23 07:09 | NUR ---
PATIENT HAS BEEN SCREENED AND CATEGORIZED LOW NUTRITION RISK. PATIENT WILL BE SEEN WITHIN 7 DAYS OF ADMISSION. 12/30/21 LINDA WREN MS, RDN
--- NOTE | 2021-12-23 08:01 | NUR ---
RECEIVED PATIENT, AOX4, RESPIRATIONS EVEN AND UNLABORED ON ROOM AIR. DENIES HEMOPTYSIS SINCE LAST NIGHT. NOT ABLE TO EXPECTORATE ANY SPUTUM. DENIES PAIN/FEVER/CHILLS AT THIS TIME. BLOOD PRESSURE ELEVATED, PRN MEDICATION GIVEN. AMBULATING INDEPENDENTLY IN ROOM, IV FLUIDS INFUSING. WILL CONTINUE TO MONITOR.
[2021-12-23] MEDS: lisinopriL 20 MG TAB PO SCH (08:47)
[2021-12-23] MEDS: BENZONATATE 100 MG CAPLF PO SCH ×3 (08:48→16:08)
[2021-12-23] MEDS ORDERED: DOXYCYCLINE 100 MG in DEXTROSE 5% 100 ML IV SCH (09:00)
--- NOTE | 2021-12-23 11:00 | NUR ---
PATIENT TRANSFERRED TO ROOM 114 FOR ISOLATION, RULE OUT TB. PATIENT STILL UNABLE TO PROVIDE SPUTUM, COUGHING BUT WITHOUT ANY PHLEGM.
[2021-12-23] MEDS ORDERED: LABETALOL 100 MG/20 ML VIAL IV PRN (11:10)
--- NOTE | 2021-12-23 12:31 | NUR ---
RESTING COMFORTABLY IN BED, TOLERATING MEALS WELL WITH NO NAUSEA/VOMITING. IV ANTIBIOTICS INFUSING. INSTRUCTED PATIENT TO CALL FOR ASSISTANCE, PATIENT VERBALIZED UNDERSTANDING. BLOOD PRESSURE STABLE AT THIS TIME. WILL CONTINUE TO MONITOR.
--- NOTE | 2021-12-23 18:56 | NUR ---
PATIENT IS RESTING IN BED, SAYS SHE COUGHED EARLIER BUT STILL HAS NO PHLEGM PRODUCTION. DENIES PAIN. ANTIBIOTICS INFUSING. TOLERATING DINNER WELL, NO NAUSEA/VOMITING. WILL ENDORSE TO NIGHT RN.
--- NOTE | 2021-12-23 19:20 | NUR ---
RECEIVED REPORT FROM MORNING RN. PATIENT RESTING ON BED, RESPIRATION EVEN AND UNLABORED ON ROOM AIR. NO COUGHING OBSERVED. NO PAIN COMPLAINTS. WILL CONTINUE TO MONITOR PATIENT.
[2021-12-23] MEDS: SIMVASTATIN 20 MG TAB PO SCH (20:15)
--- NOTE | 2021-12-23 20:25 | NUR ---
PT SITTING IN BED, ANTERIOR AUSCULTATION REVEALED BS CLEAR THROUGHOUT, CHEST RISE SYMMETRICAL, NO SIGNS OF RESPIRATORY DISTRESS NOTED AT THIS TIME. PT IS CURRENTLY SATING 99% ON RA. INSTRUCTED PT TO EXPECTORATE SPONTANEOUSLY INTO SPUTUM SAMPLE CUP. NO PHLEGM PRESENT SMALL AMOUNT OF CLEAR THIN SALIVA NOTED. CUP LEFT AT BED SIDE NOTIFIED RN WILL CONTINUE TO MONITOR.
--- NOTE | 2021-12-23 22:02 | NUR ---
CALLED AND INFORMED RT OF ORDER TO INDUCE SPUTUM. RT CAME AND GOT A LITTLE SPECIMEN SAMPLE WHICH WAS SENT TO LAB. WILL TRY AGAIN AT 6 AM PER RT. PATIENT TOLERATED WELL. WILL CONTINUE TO MONITOR AND ASSESS PATIENT.
--- NOTE | 2021-12-23 22:30 | NUR ---
AT 22:02, SPUTUM INDUCED AND SPUTUM SAMPLE OBTAINED AND TAKEN TO THE LAB. FOR ANALYSIS.
[2021-12-24 04:00] VITALS: BP 164/61
[2021-12-24] MEDS ORDERED: PIPERACILLIN/TAZOBACTAM 2.25 GM VIAL IV ONE (05:18)
[2021-12-24] MEDS: PIPERACILLIN/TAZOBACTAM 2.25 GM in DEXTROSE 5% 50 ML IV SCH ×4 (05:31→23:18)
[2021-12-24] MEDS: CLONIDINE HYDROCHLORIDE 0.1 MG TAB PO PRN (05:40)
[2021-12-24 07:04] LABS: BASOPHILS % (AUTO) 0.5 % (0.0-2.0); EOSINOPHILS # (AUTO) 0.1 K/uL (0-0.4); EOSINOPHILS % (AUTO) 0.6 % (0.0-4.0); HEMATOCRIT 33.9 % (36-48); HEMOGLOBIN 11.2 g/dL (12.0-16.0); LYMPHOCYTES # (AUTO) 2.4 K/uL (2.5-16.5); LYMPHOCYTES % (AUTO) 28.1 % (20.5-51.1); MEAN CORPUSCULAR HEMOGLOBIN 31 pg (27-31); MEAN CORPUSCULAR HGB CONC 33 g/dL (33-37); MONOCYTES # (AUTO) 0.8 K/uL (0.8-1.0); MONOCYTES % (AUTO) 9.9 % (1.7-9.3); NEUTROPHILS # (AUTO) 5.2 K/uL (1.8-7.7); NEUTROPHILS % (AUTO) 60.9 % (42.2-75.2); PLATELET COUNT (AUTO) 162 K/uL (140-450); RED BLOOD CELL COUNT(AUTO) 3.61 MIL/uL (4.20-5.40); RED CELL DISTRIBUTION WIDTH 14.2 % (11.6-13.7); WHITE BLOOD COUNT (AUTO) 8.5 K/uL (4.8-10.8)
[2021-12-24 07:07] VITALS: BP 111/46
--- NOTE | 2021-12-24 07:28 | NUR ---
CALLED RT TO FF UP ON INDUCING SPUTUM COLLECTION AND SAID THEY WILL COME AND COLLECT . REPORT GIVEN TO MORNING SHIFT RN. PATIENT STABLE , RESTING IN ROOM.
[2021-12-24 07:29] LABS: ALBUMIN 3.3 g/dL (3.4-5.0); ANION GAP 11.8 (8-16); ASPARTATE AMINOTRANSFERASE 21 U/L (15-37); CARBON DIOXIDE 28.8 mmol/L (21-32); CHLORIDE 105 mmol/L (98-107); GLUCOSE 139 mg/dL (74-106); POTASSIUM 3.6 mmol/L (3.5-5.1); SODIUM SERUM 142 mmol/L (136-145); TOTAL BILIRUBIN 0.7 mg/dL (0.0-1.0); UREA NITROGEN, BLOOD 19 mg/dL (7-18)
[2021-12-24] MEDS: BENZONATATE 100 MG CAPLF PO SCH ×3 (08:58→17:30)
[2021-12-24] MEDS: lisinopriL 20 MG TAB PO SCH (08:58)
[2021-12-24] MEDS: FAMOTIDINE 20 MG TAB PO SCH (08:58)
--- NOTE | 2021-12-24 10:07 | NUR ---
PT IS AOx4, VSS, NAD NOTED. PT'S 2ND SPUTUM CULTURE COLLECTED THIS AM BY RT. PENDING ONE. PT AWARE OF POC, QUESTIONS/CONCERNS ANSWERED AND SAFETY MEASURES IN PLACE.
[2021-12-24] MEDS ORDERED: POTASSIUM CHLORIDE 10 MEQ TABER PO SCH (11:46)
[2021-12-24 12:00] VITALS: BP 138/54
--- NOTE | 2021-12-24 14:02 | NUR ---
PATIENT HAS A SPUTUM COLLECTION JAR/CONTAINER AT BEDSIDE FOR SAMPLE. 2ND JAR/CONTAINER PLACED WITH LABEL FOR PATIENT FOR SAMPLE EXPECTORATED WHEN AVAILABLE. PATIENT IS AWARE OF ORDER AND KNOWS TO COUGH UP SAMPLE WHEN READY.
--- NOTE | 2021-12-24 19:23 | NUR ---
PT IN STABLE CONDITION, ENDORSED CARE TO BUILDING SERVICES ENGINEER RN.
--- NOTE | 2021-12-24 19:25 | NUR ---
RECEIVED REPORT FROM AM NURSE. REVIEWED AND DISCUSSED POC FOR CONTINUITY OF CARE.
[2021-12-24 20:00] VITALS: BP 134/47
[2021-12-24] MEDS: SIMVASTATIN 20 MG TAB PO SCH (20:26)
--- NOTE | 2021-12-24 21:00 | NUR ---
HS MEDS TAKEN WITHOUT DIFFICULTY. LAC 22G IV PATENT. PT ALERT VSS AFEBRILE ALL SAFETY MEASURES IN PLACE. WILL CONTINUE TO MONITOR.
--- NOTE | 2021-12-25 | NUR ---
ABX ZOSYN IVPB INFUSED WITHOUT DIFFICULTY. NS @TKO CONTINUES INFUSING.
--- NOTE | 2021-12-25 | NUR ---
PT ASLEEP. VISIBLE CHEST RISE AND FALL NOTED. NO S/SX DISTRESS NOTED. WILL CONTINUE TO MONITOR. Addendum: 12/26/21 at 031 by Zaid Mi RN NOTED SHOULD BE ON 12/26 309.
[2021-12-25 04:00] VITALS: BP 178/58
[2021-12-25] MEDS: PIPERACILLIN/TAZOBACTAM 2.25 GM in DEXTROSE 5% 50 ML IV SCH ×3 (05:54→17:04)
--- NOTE | 2021-12-25 06:20 | NUR ---
PT SLEPT SOUNDLY IN 2HR INTERVALS. ROOM TEMPERATURE COLD UNABLE TO ADJUST THE THERMASTAT. WARM BLANKETS GIVEN. "THAT FEELS BETTER." NAD. ALL SAFETY MEASURES IN PLACE. CONTINUE TO MONITOR.
[2021-12-25 06:52] LABS: BASOPHILS # (AUTO) 0.1 K/uL (0.00-0.22); BASOPHILS % (AUTO) 0.8 % (0.0-2.0); EOSINOPHILS # (AUTO) 0.4 K/uL (0-0.4); EOSINOPHILS % (AUTO) 4.6 % (0.0-4.0); HEMATOCRIT 35.7 % (36-48); HEMOGLOBIN 11.7 g/dL (12.0-16.0); LYMPHOCYTES # (AUTO) 3.2 K/uL (2.5-16.5); LYMPHOCYTES % (AUTO) 40.5 % (20.5-51.1); MEAN CORPUSCULAR HEMOGLOBIN 31 pg (27-31); MEAN CORPUSCULAR HGB CONC 33 g/dL (33-37); MEAN CORPUSCULAR VOLUME 95.3 fL (80-94); MONOCYTES # (AUTO) 0.8 K/uL (0.8-1.0); NEUTROPHILS # (AUTO) 3.5 K/uL (1.8-7.7); NEUTROPHILS % (AUTO) 44.1 % (42.2-75.2); PLATELET COUNT (AUTO) 173 K/uL (140-450); RED BLOOD CELL COUNT(AUTO) 3.75 MIL/uL (4.20-5.40); RED CELL DISTRIBUTION WIDTH 14.7 % (11.6-13.7); WHITE BLOOD COUNT (AUTO) 7.9 K/uL (4.8-10.8)
[2021-12-25 07:14] LABS: ANION GAP 11.9 (8-16); CARBON DIOXIDE 25.5 mmol/L (21-32); CHLORIDE 107 mmol/L (98-107); CREATININE 1.1 mg/dL (0.6-1.3); GLUCOSE 121 mg/dL (74-106); POTASSIUM 5.4 mmol/L (3.5-5.1); SODIUM SERUM 139 mmol/L (136-145); UREA NITROGEN, BLOOD 31 mg/dL (7-18)
[2021-12-25 08:00] VITALS: BP 154/45
--- NOTE | 2021-12-25 08:00 | NUR ---
RECEIVED REPORT FROM [facility]. PT A/O X4. ABLE TO MAKE NEEDS. COUGH NOTED WITHOUT PLEGM. NO SOB OR RESPIRATORY DISTRESS. RR EVEN & UNLABORED. ON AIRBORNE PRECAUTION. NEEDS ALL MET AT THIS TIME. SAFE PRECAUTIONS IN PLACE. WILL MONITOR CLOSELY.
[2021-12-25] MEDS: FAMOTIDINE 20 MG TAB PO SCH (09:48)
[2021-12-25] MEDS: BENZONATATE 100 MG CAPLF PO SCH ×3 (09:49→17:04)
[2021-12-25] MEDS: lisinopriL 20 MG TAB PO SCH (09:50)
--- NOTE | 2021-12-25 12:00 | NUR ---
PT NOTED WITH COUGH. PT STATES, "I DON'T HAVE ANY PHLEGM WHEN I COUGH". PT WITH NO SOB OR RESPIRATORY DISTRESS. ON RA. NEEDS ALL MET AT THIS TIME. SAFE PRECAUTIONS IN PLACE. WILL MONITOR CLOSELY.
--- NOTE | 2021-12-25 16:00 | NUR ---
SPOKE WITH DAUGHTER, . STATES PT IS NOT PICKING UP PHONE. EXPLAINED PT IS SLEEPING AND WILL HAVE PT CALL HER BACK. PT SLEEPING AND IN NO DISTRESS.
--- NOTE | 2021-12-25 17:00 | NUR ---
IV SITE DRESSING WET. DRESSING CHANGED. DRESSING C/D/I.
--- NOTE | 2021-12-25 18:00 | NUR ---
REPORT GIVEN TO [facility] FOR CONTINUITY OF CARE.
--- NOTE | 2021-12-25 19:30 | NUR ---
RECEIVED PT FROM AM SHIFT NURSE FOR CONTINUITY OF CARE. PT AWAKE, ALERT AND ORIENTED. ON ROOM AIR. IV ON L AC G 20, SL. AFEBRILE, NO S/SX OF DISTRESS. ALL PRECAUTIONS IN PLACE. CALL LIGHT WITHIN REACH.WILL CONTINUE TO MONITOR.
[2021-12-25 20:00] VITALS: BP 148/62
[2021-12-25] MEDS: SIMVASTATIN 20 MG TAB PO SCH (21:28)
[2021-12-25 22:00] VITALS: BP 148/62
--- NOTE | 2021-12-25 22:00 | NUR ---
PT RESTING BED. NO S/SX OF DISTRESS. NO COMPLAINS AT THIS TIME. I TOLD HER ABOUT THE SPUTUM SAMPLE THAT WE NEED. SHE TOLD ME THAT SHE IS HAVING A HARD TIME GIVING SAMPLE.
--- NOTE | 2021-12-26 00:30 | NUR ---
IV ON L AC WAS INFILTRATED. REMOVED, AND STARTED A NEW IV ON LEFT HAND G 22. PATENT, INTACT AND INFUSING SCHEDULED ANTIBIOTICS. ALL PRECAUTIONS IN PLACE. WILL CONTINUE TO MONITOR.
[2021-12-26] MEDS: PIPERACILLIN/TAZOBACTAM 2.25 GM in DEXTROSE 5% 50 ML IV SCH ×5 (00:32→23:37)
--- NOTE | 2021-12-26 03:11 | NUR ---
PT ASLEEP. VISIBLE CHEST RISE AND FALL NOTED. NO S/SX DISTRESS NOTED. WILL CONTINUE TO MONITOR.
[2021-12-26 04:00] VITALS: BP 160/62
--- NOTE | 2021-12-26 06:40 | NUR ---
PT IS STABLE. NO ACUTE EVENTS THROUGHOUT THE NIGHT. NO S/SX OF DISTRESS NOTED. ALL NEEDS ATTENDED.ALL PRECAUTIONS IN PLACE. WILL ENDORSE TO AM SHIFT NURSE.
--- NOTE | 2021-12-26 07:26 | NUR ---
REPORT RECEIVED FROM PM SHIFT RICKEY HUNTER FOR CONTINUITY OF CARE. PT. ALERT,STABLE. SITTING IN THE BED. NO DISTRESS NOTED. BREATHINGS EVEN AND UNLABORED. ALL SAFETY MEASURES IN PLACE. WILL CONTINUE TO MONITOR THEW PT.
[2021-12-26 08:00] VITALS: BP 164/45
[2021-12-26] MEDS: BENZONATATE 100 MG CAPLF PO SCH ×3 (08:31→17:49)
[2021-12-26] MEDS: FAMOTIDINE 20 MG TAB PO SCH (08:31)
[2021-12-26] MEDS: lisinopriL 20 MG TAB PO SCH (08:32)
--- NOTE | 2021-12-26 09:40 | NUR ---
NOTED POTASSIUM LEVEL 5.4 TODAY. NOTIFIED MD VIA MESSAGE. WILL FOLLOW UP WITH MD'S ORDER.. ADMINISTERED SCHEDULED MEDS. PT. TOLERATED WELL. WILL CONTINUE TO MONITOR THE PT.
--- NOTE | 2021-12-26 10:38 | NUR ---
RECEIVED ORDER FROM DR. DUARTE FOR POTASSIUM LEVEL 5.4. LOKELMA PO 1 PACKET X1. WILL CARRYOUT ORDER. AND CONTINUE TO MONITOR THE PT.
[2021-12-26] MEDS ORDERED: SODIUM ZIRCONIUM CYCLOSILICATE 10 GM POWD.PACK PO SCH (10:40)
--- NOTE | 2021-12-26 10:47 | NUR ---
DC PLANNING: THE PATIENT ADMITTED WITH C/O HEMOPTYSIS, H/O TB WITH PULMONARY SCARRING. LACTIC ACID 2.5, CT CHEST SHOWS SCATTERED BILATERAL NODULAR INFILTRATES, RIGHT MIDDLE LOB BRONCHIECTASIS AND ATELECTASIS. ORDERS FOR CONSULTS WITH ID AND PULMONOLOGY, ADMITTED R/O TB. SERIAL AFB'S ORDERED, QFT RESULTS PENDING. ON ZOSYN IV, GIVEN LOKELMA YESTERDAY FOR K+ OF 5.4. PATIENT IN TB ISOLATION, REYNALDO ATTEMPTED TO SPEAK WITH FAMILY REGARDING DC PLANNING, LEFT FOR HER DAUGHTER . CM WILL FOLLOW. Addendum: 12/26/21 at 1125 by Vale Hoskins DC PLANNING: PATIENTS DAUGHTER LADAshlee CALLED BACK AND SPOKE WITH CM. THE PATIENT LIVES WITH HER DAUGHTER AND SON IN [place] IN A TWO STORY HOUSE BUT HER BEDROOM IS ON THE GROUND FLOOR. HAS DME OF [facility] WITH SEAT,CANE, 3 IN 1 COMMODE AND SHOWER BENCH. SHE IS ABLE TO AMBULATE AND COOK AND IS INDEPENDENT WITH ADL'S. NO H/O HOME HEALTH AND THE PATIENT SEES HER PCP WILLIAM REYNOLDS REGULARLY AND HAS LABS DRAWN EVERY 3 MONTHS. DC PLAN IS FOR THE PATIENT TO RETURN HOME WITH HER FAMILY, CM WILL FOLLOW FOR NEEDS. Addendum: 12/26/21 at 1719 by Whitley Luther DC PLANNING PATIENT IS A 86 YEAR-OLD [place] FEMALE ADMITTED TO [facility]/ED ON 12/23/2021. DUE TO COUGH WITH BLOODY SPUTUM. PATIENT HAS HX. OF PMH OF HYPERTENSION, AND PRESENTED WITH BRONCHIECTASIS TO THE ER. SW MET WITH PATIENT AT BEDSIDE TO DISCUSS AND GATHER PATIENT'S COLLATERAL INFORMATION. PATIENT REPORTED LIVING AT HOME WITH HER DAUGHTER LADAshlee IN [facility]. PATIENT STATED HAVING A GOOD FAMILY SUPPORT FROM HER FAMILY,AND DAUGHTER LADY HART IS HER EMERGENCY CONTACT AND HER MEDICAL DECISION MAKER. PATIENT REQUESTED FOR THESE LOGGING TRACTOR OPERATOR TO ALSO SPEAK TO PATIENT'S DAUGHTER LADY IN [place] TO SOME OF HER INFORMATION THAT SHE WAS UNABLE TO REMEMBER. SW AGREED AND ALSO CALL PATIENT'S DAUGHTER TO CONFIRMED PATIENT'S INFORMATION VIA TELEPHONIC CALL. PATIENT'S DAUGHTER LADY STATED THAT PATIENT DO NOT HAVE ADVANCE DIRECTIVES AND WAS INTERESTED ON GETTING A.D. INFORMATION PACKET PROVIDED BY EMI AT THE TIME OF VISIT SW LEFT A.D. INF. IN PATIENT'S ROOM FOR DAUGHTER LADY WHO WILL BE PICKING IT UP WHEN SHE VISITS HER MOTHER LATER TODAY. PATIENT'S DAUGHTER REPORTED THAT PATIENT IS ACTIVE AND ABLE TO MOVE WITH HER DME. PATIENT HAS A WALKER, WHEELCHAIR, AND A CANE AT HOME HER DME. PATIENT'S DAUGHTER STATED NOT HAVING ANY ISSUES WITH GETTING OR TAKING ANY MEDICATIONS FROM THE PHARMACY NEAR HER HOME. EMI EXPLAINED TO PATIENT THE NEED FOR A FOLLOW UP APPOINTMENT WITH HER PCP WITHIN 5-7 DAYS AFTER HER DC FROM [facility]. PATIENT'S DAUGHTER AGREED FOR SW TO MAKE HER APPOINTMENT WHEN PATIENT IS READY FOR HER DISCHARGE FROM [facility]. PATIENT'S DAUGHTER REPORTED THAT PATIENT WILL BE RETURNING HOME WITH HER AND THAT SHE WILL BE ASSISTING HER WITH TRANSPORTATION BACK HOME WHEN SHE IS READY FOR DISCHARGE FROM [facility]. SW WILL FOLLOW UP WITH PATIENT NEEDED. Addendum: 12/27/21 at 1328 by Whitley Luther DC PLANNING EMI CALLED PATIENT'S PCP OFFICE AT TO SCHEDULED A FOLLOW UP APPOINTMENT FOR PATIENT AFTER HER DC FROM [facility]. EMI SPOKE TO NAI WHO PROVIDED A FOLLOW UP APPOINTMENT FOR PATIENT ON 12/29/2021 AT 8:45[place] [address] [place] [id number]. THIS LOGGING TRACTOR OPERATOR SCHEDULED APPT AND ENDED THE CALL. EMI CALLED PATIENT'S DAUGHTER LADY HART AT TO INFORM HER OF PATIENT'S SCHEDULED APPOINTMENT BY THERE LOGGING TRACTOR OPERATOR WITH PCP WITHIN 7 DAYS OF HER DISCHARGE FROM [facility]. EMI PROVIDED PATIENT'S DAUGHTER WITH ALL INFORMATION TIME, DATE AND ADDRESS FOR PATIENT'S FOLLOW UP APPOINTMENT. PATIENT DAUGHTER AGREED TO TAKE PATIENT TO HER SCHEDULED APPOINTMENT AND THANKED THESE LOGGING TRACTOR OPERATOR FOR THE CALL. Addendum: 01/01/22 at 1144 by Vale Hoskins DC PLANNING: FIRST AFB WITH RESULTS OF 2+, TB QUANT POSITIVE. ORDERS TO START RIPE MEDICATION THERAPY BY ID. PATIENT ALSO FOLLOWED BY PULMONOLOGY, ON , ZOSYN DC'D BY ID ON 12/31. CONTINUES IN TB ISOLATION, TWO AFB'S PENDING. PRELIMINARY SPUTUM CULTURE WITH RESULTS OF GM POSITIVE COCCI. REYNALDO WILL FOLLOW. Addendum: 01/02/22 at 1502 by Vale Hoskins CM DC PLANNING: THE PATIENT IS ON DAY FOUR OF RIPE PROTOCOL FOR TB, WILL NEED LFT'S DONE ON SATURDAY AFTER RIPE PROTOCOL IS COMPLETED. REYNALDO ALSO SPOKE WITH THE PATIENTS DAUGHTER BY PHONE TO OBTAIN INFORMATION TO HELP COMPLETE THE PUBLIC HEALTH TB DC PLAN. WILL MAKE AN APPOINTMENT WITH DR OLSEN FOR TB F/U AND WILL CALL WITH THE DATE. REYNALDO WILL FOLLOW FOR NEEDS. Addendum: 01/04/22 at 1020 by Vale Hoskins CM DC PLANNING: [facility] IS ASKING FOR A FULL 14 DAYS OF RIPE MEDICATION PROTOCOL AND THEN REPEAT AFB'S AND TB QUANT. CASE REFERRED TO THE [facility] RESTORER LACE AND TEXTILES BY THE [facility] RN, NEW DC REQUIREMENTS GIVEN TO ID NURSE AND CM. THE ATTENDING MD WILL BE MADE AWARE OF NEW NEEDS PER [facility] DEPT., CM WILL FOLLOW. Addendum: 01/10/22 at 1157 by Vale Hoskins CM DC PLANNING: THE PATIENT CONTINUES ON TB PROTOCOL OF RIPE, WILL START COLLECTING AFB'S TODAY PER [facility]S OVERSIGHT. CM WILL FOLLOW. Addendum: 01/11/22 at 1217 by Vale Hoskins CM DC PLANNING: AFB COLLECTED AND SENT, PATIENT CONTINUES IN TB ISOLATION ON RIPE MEDICATION PROTOCOL. PATIENT MANAGEMENT AND ONGOING DIAGNOSTICS PER PUBLIC HEALTH DEPARTMENT DIRECTION, CM WILL FOLLOW FOR NEEDS.
--- NOTE | 2021-12-26 14:52 | NUR ---
PT. COMFORTABLY LYING IN THE BED. WITH NO DISTRESS NOTED BREATHINGS EVEN AND UNLABORED. SAFETY MEASURES IN PLACE. WILL CONTINUE TO MONITOR THE PT.
[2021-12-26 16:00] VITALS: BP 157/58
--- NOTE | 2021-12-26 16:56 | NUR ---
DC PLANNING PATIENT IS A 86 YEAR-OLD BERMUD[place] FEMALE ADMITTED TO [facility]/ED ON 12/23/2021. DUE TO COUGH WITH BLOODY SPUTUM. PATIENT HAS HX. OF PMH OF HYPERTENSION, AND PRESENTED WITH BRONCHIECTASIS TO THE ER. SW MET WITH PATIENT AT BEDSIDE TO DISCUSS AND GATHER PATIENT'S COLLATERAL INFORMATION. PATIENT REPORTED LIVING AT HOME WITH HER DAUGHTER IN [facility]. PATIENT STATED HAVING A GOOD FAMILY SUPPORT FROM HER FAMILY, AND DAUGHTER LADY HART IS HER EMERGENCY CONTACT AND HER MEDICAL DECISION MAKER. PATIENT REQUESTED FOR THESE REED POLISHER TO ALSO SPEAK TO PATIENT'S DAUGHTER LADY IN [place]AR[place] TO SOME OF HER INFORMATION THAT SHE WAS UNABLE TO REMEMBER. SW AGREED AND ALSO CALL PATIENT'S DAUGHTER TO CONFIRMED PATIENT'S INFORMATION VIA TELEPHONIC CALL. PATIENT'S DAUGHTER LADY STATED THAT PATIENT DO NOT HAVE ADVANCE DIRECTIVES AND WAS INTERESTED ON GETTING A.D. INFORMATION PACKET PROVIDED BY [employer] AT THE TIME OF VISIT SW LEFT A.D. INF. IN PATIENT'S ROOM FOR DAUGHTER LADY WHO WILL BE PICKING IT UP WHEN SHE VISITS HER MOTHER LATER TODAY. PATIENT'S DAUGHTER REPORTED THAT PATIENT IS ACTIVE AND ABLE TO MOVE WITH HER DME. PATIENT HAS A WALKER, WHEELCHAIR, AND A CANE AT HOME HER DME. PATIENT'S DAUGHTER STATED NOT HAVING ANY ISSUES WITH GETTING OR TAKING ANY MEDICATIONS FROM THE PHARMACY NEAR HER HOME. SW EXPLAINED TO PATIENT THE NEED FOR A FOLLOW UP APPOINTMENT WITH HER PCP WITHIN 5-7 DAYS AFTER HER DC FROM [facility]. PATIENT'S DAUGHTER AGREED FOR SW TO MAKE HER APPOINTMENT WHEN PATIENT IS READY FOR HER DISCHARGE FROM [facility]. PATIENT'S DAUGHTER REPORTED THAT PATIENT WILL BE RETURNING HOME WITH HER AND THAT SHE WILL BE ASSISTING HER WITH TRANSPORTATION BACK HOME WHEN SHE IS READY FOR DISCHARGE FROM [facility]. SW WILL FOLLOW UP WITH PATIENT NEEDED.
--- NOTE | 2021-12-26 18:03 | NUR ---
PT. ALERT, ORIENTED .STABLE . NO DISTRESS NOTED.BREATHINGS EVEN AND UNLABORED. WILL CONTINUE TO MONITOR THE PT. CALL LIGHT WITHIN REACH.
--- NOTE | 2021-12-26 19:16 | NUR ---
REPORT GIVEN TO PM SHIFT RN FOR CONTINUITY OF CARE. PT. ADELINA.
--- NOTE | 2021-12-26 19:18 | NUR ---
RECEIVED REPORT FROM MORNING SHIFT RN. PATIENT SITTING AT BEDSIDE, RESPIRATION EVEN AND UNLABORED, NO COUGH. IV ANTIBIOTICS ONGOING. CALL LIGHT WITHIN REACH. NO COMPLAINTS OF PAIN. WILL CONTINUE TO MONITOR AND ASSESS PATIENT.
[2021-12-26] MEDS: SIMVASTATIN 20 MG TAB PO SCH (20:45)
[2021-12-27 04:00] VITALS: BP 149/73
[2021-12-27] MEDS: PIPERACILLIN/TAZOBACTAM 2.25 GM in DEXTROSE 5% 50 ML IV SCH ×3 (05:25→17:29)
[2021-12-27 06:21] LABS: MAGNESIUM 1.9 mg/dL (1.8-2.4); PHOSPHORUS 3.5 mg/dL (2.5-4.9)
[2021-12-27 07:17] LABS: BASOPHILS # (AUTO) 0.1 K/uL (0.00-0.22); BASOPHILS % (AUTO) 0.8 % (0.0-2.0); EOSINOPHILS # (AUTO) 0.3 K/uL (0-0.4); HEMATOCRIT 35.4 % (36-48); HEMOGLOBIN 11.7 g/dL (12.0-16.0); LYMPHOCYTES # (AUTO) 2.6 K/uL (2.5-16.5); MEAN CORPUSCULAR HEMOGLOBIN 31 pg (27-31); MEAN CORPUSCULAR HGB CONC 33 g/dL (33-37); MEAN CORPUSCULAR VOLUME 94.2 fL (80-94); MONOCYTES # (AUTO) 0.7 K/uL (0.8-1.0); MONOCYTES % (AUTO) 10.4 % (1.7-9.3); NEUTROPHILS # (AUTO) 3.2 K/uL (1.8-7.7); NEUTROPHILS % (AUTO) 45.8 % (42.2-75.2); PLATELET COUNT (AUTO) 171 K/uL (140-450); RED BLOOD CELL COUNT(AUTO) 3.76 MIL/uL (4.20-5.40); RED CELL DISTRIBUTION WIDTH 14.2 % (11.6-13.7); WHITE BLOOD COUNT (AUTO) 6.9 K/uL (4.8-10.8)
--- NOTE | 2021-12-27 07:19 | NUR ---
ENDORSED PATIENT TO MORNING SHIFT RN FOR CONTINUITY OF CARE. PATIENT STABLE AND RESTING ON BED.
--- NOTE | 2021-12-27 07:30 | NUR ---
RECEIVED PT FROM RICKEY BORGES. PT IS AAOX4, NORMAL S1S2 NOTED. RESP E/U. LUNG SOUNDS CTA. NO R/A. NO COUGH OR SOB NOTED. ABDOMEN SOFT, NONTENDER, NONDISTENDED. BOWEL SOUNDS ACTIVE X4. DENIES N/V/D/C, REPORTS STRESS INCONTNENTS. SKIN CDI. NO EDEMA. DISTAL PULSES NORMAL, SKIN WARM. IV CATH TO S/L. SITE WNL. DRESSING CDI. DENIES PAIN. DROPLET PRECAUTIONS AND FALL PROTOCOL IN PLACE. CALL LIGHT WITHIN REACH. BED IN LOWEST POSITION.
[2021-12-27 08:13] LABS: ANION GAP 12.5 (8-16); CARBON DIOXIDE 28.4 mmol/L (21-32); CHLORIDE 104 mmol/L (98-107); GLUCOSE 122 mg/dL (74-106); POTASSIUM 3.9 mmol/L (3.5-5.1); SODIUM SERUM 141 mmol/L (136-145); UREA NITROGEN, BLOOD 18 mg/dL (7-18)
[2021-12-27] MEDS: FAMOTIDINE 20 MG TAB PO SCH (09:56)
[2021-12-27] MEDS: lisinopriL 20 MG TAB PO SCH (10:02)
[2021-12-27] MEDS: BENZONATATE 100 MG CAPLF PO SCH ×3 (10:03→17:29)
[2021-12-27 12:00] VITALS: BP 142/73
--- NOTE | 2021-12-27 14:47 | NUR ---
RECEIVED ORDER FROM DR. DUARTE, RENEW ZOSYN IVPB FOR A TOTAL OF 10 DAYS, STOP DATED TO BE 01/02/22.
[2021-12-27] MEDS: CLONIDINE HYDROCHLORIDE 0.1 MG TAB PO PRN (15:40)
--- NOTE | 2021-12-27 15:40 | NUR ---
CATAPRES PO PRN GIVEN FOR B/[P 171/66. PT DENIES H/A AND DIZZNESS.
[2021-12-27 16:00] VITALS: BP 171/66
--- NOTE | 2021-12-27 17:34 | NUR ---
B/P NO 120/57. SCHEDULED MED INITIATED. PT DENIES PAIN. CALL LIGHT WITHIN REACH.
--- NOTE | 2021-12-27 19:49 | NUR ---
PT SITTING IN BED, ANTERIOR AUSCULTATION REVEALED BS CLEAR THROUGHOUT, CHEST RISE SYMMETRICAL, NO SIGNS OF RESPIRATORY DISTRESS NOTED AT THIS TIME. PT IS CURRENTLY SATING 92% ON RA WILL CONTINUE TO MONITOR.
[2021-12-27 20:00] VITALS: BP 131/53
[2021-12-27] MEDS: SIMVASTATIN 20 MG TAB PO SCH (21:33)
[2021-12-28 04:00] VITALS: BP 122/44
[2021-12-28] MEDS: PIPERACILLIN/TAZOBACTAM 2.25 GM in DEXTROSE 5% 50 ML IV SCH ×6 (06:31→23:50)
[2021-12-28 07:08] LABS: ANION GAP 13.2 (8-16); CARBON DIOXIDE 26.3 mmol/L (21-32); CHLORIDE 104 mmol/L (98-107); CREATININE 1.1 mg/dL (0.6-1.3); GLUCOSE 112 mg/dL (74-106); POTASSIUM 4.5 mmol/L (3.5-5.1); SODIUM SERUM 139 mmol/L (136-145); UREA NITROGEN, BLOOD 22 mg/dL (7-18)
[2021-12-28 07:18] LABS: PHOSPHORUS 4.1 mg/dL (2.5-4.9)
--- NOTE | 2021-12-28 07:30 | NUR ---
RECEIVED REPORT FROM TIP PUNCHER NURSE.
[2021-12-28 07:35] LABS: BASOPHILS % (AUTO) 0.6 % (0.0-2.0); EOSINOPHILS # (AUTO) 0.3 K/uL (0-0.4); EOSINOPHILS % (AUTO) 4.7 % (0.0-4.0); HEMATOCRIT 34.6 % (36-48); HEMOGLOBIN 11.5 g/dL (12.0-16.0); LYMPHOCYTES # (AUTO) 2.9 K/uL (2.5-16.5); MEAN CORPUSCULAR HEMOGLOBIN 32 pg (27-31); MEAN CORPUSCULAR HGB CONC 33 g/dL (33-37); MEAN CORPUSCULAR VOLUME 94.2 fL (80-94); MONOCYTES # (AUTO) 0.7 K/uL (0.8-1.0); MONOCYTES % (AUTO) 9.7 % (1.7-9.3); NEUTROPHILS # (AUTO) 2.9 K/uL (1.8-7.7); PLATELET COUNT (AUTO) 175 K/uL (140-450); RED BLOOD CELL COUNT(AUTO) 3.67 MIL/uL (4.20-5.40); RED CELL DISTRIBUTION WIDTH 14.3 % (11.6-13.7); WHITE BLOOD COUNT (AUTO) 6.8 K/uL (4.8-10.8)
[2021-12-28] MEDS: lisinopriL 20 MG TAB PO SCH (08:37)
[2021-12-28] MEDS: FAMOTIDINE 20 MG TAB PO SCH (08:37)
[2021-12-28] MEDS: BENZONATATE 100 MG CAPLF PO SCH ×4 (08:37→17:00)
[2021-12-28 12:00] VITALS: BP 130/57
--- NOTE | 2021-12-28 12:20 | NUR ---
COUGH SUPPRESSANT HELD FOR SPUTUM COLLECTION PER MD. RT TREATMENT ORDERED TO ASSIST PATIENT WITH SPUTUM PRODUCTION
[2021-12-28] MEDS ORDERED: SODIUM CHLORIDE 3% 4 ML SOL INH SCH (12:30)
--- NOTE | 2021-12-28 15:30 | NUR ---
SPOKE WITH LAB AND NOTIFIED CARMEN AND FRIEDA, OF RESULTED SPUTUM ADDEDD TO PT CHART. PT HAS NOT PRODUCED SPUTUM AT THIS POINT DURING SHIFT
--- NOTE | 2021-12-28 17:29 | NUR ---
COUGH SUPPRESSANT HELD PER MD FOR SPUTUM COLLECTION. PT STILL UNABLE TO PROVIDE SPUTUM SAMPLE. NO S/S OF DISTRESS. CALL LIGHT IN REACH. ALL SAFETY MEASURES IN PLACE.
--- NOTE | 2021-12-28 19:22 | NUR ---
ENDORSED PT TO CHERRY DIPPER NURSE. NIGHT NURSE NOTIFIED OF SPUTUM COLLECTION
--- NOTE | 2021-12-28 19:25 | NUR ---
RECEIVED BEDSIDE REPORT FROM DAY SHIFT NURSE. PATIENT IS AWAKE, ALERT, AND COOPERATIVE. RESPIRATION EVEN UNLABORED ON ROOM AIR. NO DISTRESS NOTED. SKIN IS WARM AND DRY. IV PATENT AND INTACT. PLAN OF CARE WAS DISCUSSED. ALL SAFETY MEASURES IN PLACE. BED IS AT LOW POSITION. CALL LIGHT WITHIN REACH. WILL CONTINUE TO MONITOR
[2021-12-28 20:00] VITALS: BP 120/70
--- NOTE | 2021-12-28 20:30 | NUR ---
INITIAL ASSESSMENT DONE. VITALS WERE TAKEN.
[2021-12-28] MEDS: SIMVASTATIN 20 MG TAB PO SCH (20:51)
--- NOTE | 2021-12-28 20:51 | NUR ---
ALL SCHEDULED MEDS WERE GIVEN PER ORDER. WILL CONTINUE TO MONITOR
--- NOTE | 2021-12-29 00:24 | NUR ---
VITALS WERE TAKEN. PT IS NO DISTRESS NOTED
--- NOTE | 2021-12-29 01:31 | NUR ---
MADE ROUNDS, PATIENT SLEEPING RESPIRATION EVEN UNLABORED ON ROOM AIR. NO DISTRESS NOTED. WILL CONTINUE TO MONITOR
[2021-12-29 04:00] VITALS: BP 150/63
--- NOTE | 2021-12-29 04:00 | NUR ---
VITALS WERE TAKEN
[2021-12-29] MEDS: PIPERACILLIN/TAZOBACTAM 2.25 GM in DEXTROSE 5% 50 ML IV SCH ×4 (05:03→23:59)
[2021-12-29 06:20] LABS: BASOPHILS # (AUTO) 0.1 K/uL (0.00-0.22); EOSINOPHILS # (AUTO) 0.3 K/uL (0-0.4); EOSINOPHILS % (AUTO) 4.1 % (0.0-4.0); HEMATOCRIT 33.4 % (36-48); HEMOGLOBIN 11.1 g/dL (12.0-16.0); LYMPHOCYTES # (AUTO) 2.5 K/uL (2.5-16.5); LYMPHOCYTES % (AUTO) 40.4 % (20.5-51.1); MEAN CORPUSCULAR HEMOGLOBIN 31 pg (27-31); MEAN CORPUSCULAR HGB CONC 33 g/dL (33-37); MEAN CORPUSCULAR VOLUME 93.8 fL (80-94); MONOCYTES # (AUTO) 0.6 K/uL (0.8-1.0); MONOCYTES % (AUTO) 10.5 % (1.7-9.3); NEUTROPHILS # (AUTO) 2.7 K/uL (1.8-7.7); PLATELET COUNT (AUTO) 177 K/uL (140-450); RED BLOOD CELL COUNT(AUTO) 3.56 MIL/uL (4.20-5.40); RED CELL DISTRIBUTION WIDTH 14.3 % (11.6-13.7); WHITE BLOOD COUNT (AUTO) 6.2 K/uL (4.8-10.8)
[2021-12-29 06:32] LABS: ANION GAP 12.8 (8-16); CARBON DIOXIDE 26.8 mmol/L (21-32); CHLORIDE 105 mmol/L (98-107); GLUCOSE 130 mg/dL (74-106); POTASSIUM 4.6 mmol/L (3.5-5.1); SODIUM SERUM 140 mmol/L (136-145); UREA NITROGEN, BLOOD 19 mg/dL (7-18)
[2021-12-29 06:35] LABS: MAGNESIUM 1.9 mg/dL (1.8-2.4); PHOSPHORUS 3.6 mg/dL (2.5-4.9)
--- NOTE | 2021-12-29 07:19 | NUR ---
ENDORSED PATIENT TO DAY SHIFT NURSE FOR CONTINUITY OF CARE
--- NOTE | 2021-12-29 07:30 | NUR ---
RECEIVED REPORT FROM CHINESE MEDICINE PRACTITIONER NURSE.
[2021-12-29] MEDS: BENZONATATE 100 MG CAPLF PO SCH ×3 (08:01→17:00)
--- NOTE | 2021-12-29 08:01 | NUR ---
COUGH SUPPRESSANT HELD PER MD UNTIL SPUTUM COLLECTION. PT STILL UNABLE TO PRODUCE SAMPLE
[2021-12-29] MEDS: lisinopriL 20 MG TAB PO SCH (09:13)
[2021-12-29] MEDS: FAMOTIDINE 20 MG TAB PO SCH (09:13)
--- NOTE | 2021-12-29 11:11 | NUR ---
PT RESTING IN BED. SPUTUM SAMPLE WAS SENT TO LAB. NEW COLLECTION CUP WAS PROVIDED TO PT IF SPUTUM NEEDS TO BE RECOLLECTED. CALL LIGHT IN REACH. ALL SAFETY MEASURES IN PLACE
[2021-12-29 12:00] VITALS: BP 152/66
--- NOTE | 2021-12-29 13:07 | NUR ---
COUGH SUPPRESSANT HELD PER MD UNTIL SPUTUM COLLECTION. SAMPLE WAS SENT TO LAB, WAITING TO DETERMINE THAT SAMPLE IS ADEQUATE
--- NOTE | 2021-12-29 16:14 | NUR ---
12/29/21 RD INITIAL ASSESSMENT COMPLETED PLEASE REFER TO NUTRITION ASSESSMENT UNDER CARE ACTIVITY FOR ESTIMATED NUTRITIONAL NEEDS. 1. CONTINUE REGULAR DIET TOLERATED -RECOMMEND ENSURE BID IF PO INTAKE IS < 75% 2. RD TO FOLLOW-UP 7 DAYS, LOW RISK NAVIN BE RD
--- NOTE | 2021-12-29 17:06 | NUR ---
COUGH SUPPRESSANT HELD PER MD UNTIL SPUTUM COLLECTION. SAMPLE WAS SENT TO LAB, STILL WAITING TO DETERMINE THAT SAMPLE IS ADEQUATE BEFORE MEDICATION RESTARTED
--- NOTE | 2021-12-29 19:19 | NUR ---
ENDORSED PT TO BUSINESS ETHICS PROFESSOR NURSE
--- NOTE | 2021-12-29 19:40 | NUR ---
RECEIVED REPORT FROM DAY SHIFT RN FOR CONTINUITY OF CARE. PT IS AWAKE SITTING IN BED. PT IS ON RA. NOT IN ANY DISTRESS. BREATHING RHYTHMIC AND UNLABORED. CALL LIGHT WITHIN REACH. ALL SAFETY MEASURES TAKEN. WILL CONTINUE TO MONITOR THE PT.
[2021-12-29 20:00] VITALS: BP 136/68
[2021-12-29] MEDS: SIMVASTATIN 20 MG TAB PO SCH (20:03)
--- NOTE | 2021-12-29 21:35 | NUR ---
PT IS SLEEPING IN BED COMFORTABLY. PT IS NOT IN ANY DISTRESS. BREATHING RHYTHMIC AND UNLABORED. CALL LIGHT WITHIN REACH. ALL SAFETY MEASURES TAKEN. WILL CONTINUE TO MONITOR THE PT.
--- NOTE | 2021-12-29 23:59 | NUR ---
ALL DUE MEDS GIVEN. NO ADVERSE REACTION NOTED. WILL CONTINUE TO MONITOR THE PT.
--- NOTE | 2021-12-30 03:52 | NUR ---
PT WAS CLEANED AND CHANGED. PT IS NOT IN ANY DISTRESS. BREATHING RHYTHMIC AND UNLABORED. CALL LIGHT WITHIN REACH. ALL SAFETY MEASURES TAKEN. WILL CONTINUE TO MONITOR THE PT.
[2021-12-30 04:00] VITALS: BP 139/53
[2021-12-30] MEDS: PIPERACILLIN/TAZOBACTAM 2.25 GM in DEXTROSE 5% 50 ML IV SCH ×3 (05:11→18:14)
--- NOTE | 2021-12-30 07:14 | NUR ---
ENDORSED PT TO DAY SHIFT RN FOR CONTINUITY OF CARE. PT IS STABLE.
[2021-12-30 07:49] LABS: ANION GAP 9.6 (8-16); CARBON DIOXIDE 28.8 mmol/L (21-32); CHLORIDE 105 mmol/L (98-107); CREATININE 1.1 mg/dL (0.6-1.3); GLUCOSE 116 mg/dL (74-106); POTASSIUM 4.4 mmol/L (3.5-5.1); SODIUM SERUM 139 mmol/L (136-145); UREA NITROGEN, BLOOD 17 mg/dL (7-18)
[2021-12-30 08:00] VITALS: BP 161/61
[2021-12-30 08:00] LABS: MAGNESIUM 1.8 mg/dL (1.8-2.4); PHOSPHORUS 3.2 mg/dL (2.5-4.9)
--- NOTE | 2021-12-30 08:01 | NUR ---
RECEIVED PATIENT, AOX4 ,RESPIRATIONS EVEN AND UNLABORED ON ROOM AIR, VITAL SIGNS STABLE. DENIES PAIN, DENIES COUGH, AMBULATING INDEPENDENTLY IN ROOM. UPDATED PATIENT ON PLAN OF CARE. FALL PRECAUTIONS IN PLACE.
[2021-12-30] MEDS: lisinopriL 20 MG TAB PO SCH (08:43)
[2021-12-30] MEDS: FAMOTIDINE 20 MG TAB PO SCH (08:43)
[2021-12-30] MEDS: BENZONATATE 100 MG CAPLF PO SCH ×3 (08:44→17:00)
[2021-12-30 08:55] LABS: BASOPHILS # (AUTO) 0.1 K/uL (0.00-0.22); BASOPHILS % (AUTO) 0.7 % (0.0-2.0); EOSINOPHILS # (AUTO) 0.3 K/uL (0-0.4); EOSINOPHILS % (AUTO) 3.8 % (0.0-4.0); HEMOGLOBIN 11.4 g/dL (12.0-16.0); LYMPHOCYTES # (AUTO) 2.8 K/uL (2.5-16.5); LYMPHOCYTES % (AUTO) 36.5 % (20.5-51.1); MEAN CORPUSCULAR HEMOGLOBIN 31 pg (27-31); MEAN CORPUSCULAR HGB CONC 33 g/dL (33-37); MEAN CORPUSCULAR VOLUME 94.2 fL (80-94); MONOCYTES # (AUTO) 0.7 K/uL (0.8-1.0); MONOCYTES % (AUTO) 9.8 % (1.7-9.3); NEUTROPHILS # (AUTO) 3.7 K/uL (1.8-7.7); NEUTROPHILS % (AUTO) 49.2 % (42.2-75.2); PLATELET COUNT (AUTO) 177 K/uL (140-450); RED BLOOD CELL COUNT(AUTO) 3.61 MIL/uL (4.20-5.40); RED CELL DISTRIBUTION WIDTH 14.3 % (11.6-13.7); WHITE BLOOD COUNT (AUTO) 7.6 K/uL (4.8-10.8)
[2021-12-30 16:00] VITALS: BP 131/52
--- NOTE | 2021-12-30 17:45 | NUR ---
NOTIFIED BY LAB THAT PATIENT'S AFB IS +2 AND TB GOLD IS POSITIVE DR. DUARTE AWARE. NOTIFIED DR. KRAFT, RECEIVED ORDERS FOR TB TREATMENT. NOTIFIED DR. SOLER, RECOMMENDS WAITING FOR MTB NAAT RESULTS BEFORE TREATING CHECKED WITH LAB, CONFIRMED THAT THE ORDER WAS PLACED NOTIFIED DR KRAFT, STILL WANTS TO CONTINUE TB TREATMENT STARTING TONIGHT.
--- NOTE | 2021-12-30 18:19 | NUR ---
EXPLAINED RESULTS/PLAN OF CARE TO PATIENT AND DAUGHTER, LADY. VERBALIZED UNDERSTANDING.
[2021-12-30 20:00] VITALS: BP 122/74
[2021-12-30] MEDS: ISONIAZID 100 MG TAB PO SCH (20:48)
[2021-12-30] MEDS: PYRIDOXINE 50 MG TAB PO SCH (20:48)
[2021-12-30] MEDS: SIMVASTATIN 20 MG TAB PO SCH (20:49)
[2021-12-30] MEDS: rifAMPin 300 MG CAP PO SCH (21:00)
[2021-12-30] MEDS: PYRAZINAMIDE 500 MG TAB PO SCH (21:00)
[2021-12-30] MEDS: ETHAMBUTOL 400 MG TAB PO SCH (21:00)
[2021-12-31] MEDS: PIPERACILLIN/TAZOBACTAM 2.25 GM in DEXTROSE 5% 50 ML IV SCH ×3 (00:51→11:21)
[2021-12-31 04:00] VITALS: BP 131/71
[2021-12-31 07:00] LABS: BASOPHILS # (AUTO) 0.1 K/uL (0.00-0.22); BASOPHILS % (AUTO) 0.8 % (0.0-2.0); EOSINOPHILS # (AUTO) 0.3 K/uL (0-0.4); EOSINOPHILS % (AUTO) 3.4 % (0.0-4.0); HEMATOCRIT 34.5 % (36-48); HEMOGLOBIN 11.3 g/dL (12.0-16.0); LYMPHOCYTES % (AUTO) 39.7 % (20.5-51.1); MEAN CORPUSCULAR HEMOGLOBIN 31 pg (27-31); MEAN CORPUSCULAR HGB CONC 33 g/dL (33-37); MEAN CORPUSCULAR VOLUME 94.3 fL (80-94); MONOCYTES # (AUTO) 0.7 K/uL (0.8-1.0); MONOCYTES % (AUTO) 8.8 % (1.7-9.3); NEUTROPHILS # (AUTO) 3.5 K/uL (1.8-7.7); NEUTROPHILS % (AUTO) 47.3 % (42.2-75.2); PLATELET COUNT (AUTO) 179 K/uL (140-450); RED BLOOD CELL COUNT(AUTO) 3.66 MIL/uL (4.20-5.40); RED CELL DISTRIBUTION WIDTH 14.5 % (11.6-13.7); WHITE BLOOD COUNT (AUTO) 7.5 K/uL (4.8-10.8)
[2021-12-31 07:18] LABS: ANION GAP 8.6 (8-16); CARBON DIOXIDE 30.4 mmol/L (21-32); CHLORIDE 104 mmol/L (98-107); GLUCOSE 118 mg/dL (74-106); SODIUM SERUM 139 mmol/L (136-145); UREA NITROGEN, BLOOD 12 mg/dL (7-18)
[2021-12-31 07:23] LABS: MAGNESIUM 1.8 mg/dL (1.8-2.4); PHOSPHORUS 3.1 mg/dL (2.5-4.9)
--- NOTE | 2021-12-31 07:40 | NUR ---
RECEIVED BEDSIDE REPORT FROM ED NURSE FOR CONTINUITY OF CARE. PT IS RESTING, ALERT AND ORIENTED.AMBULATORY. BREATHING IS EVEN AND UNLABORED. NO SIGNS OF DISTRESS NOTED. CALL LIGHT WITHIN REACH. BED IN LOW LOCKED POSITION. ALL PRECAUTIONS IN PLACE. PT IS STABLE.
[2021-12-31 08:00] VITALS: BP 153/74
[2021-12-31] MEDS: ETHAMBUTOL 400 MG TAB PO SCH (09:00)
[2021-12-31] MEDS: BENZONATATE 100 MG CAPLF PO SCH ×3 (09:50→17:55)
[2021-12-31] MEDS: ISONIAZID 100 MG TAB PO SCH (09:50)
[2021-12-31] MEDS: FAMOTIDINE 20 MG TAB PO SCH (09:50)
[2021-12-31] MEDS: PYRIDOXINE 50 MG TAB PO SCH (09:51)
[2021-12-31] MEDS: lisinopriL 20 MG TAB PO SCH (09:51)
[2021-12-31] MEDS: PYRAZINAMIDE 500 MG TAB PO SCH (09:55)
[2021-12-31] MEDS: rifAMPin 300 MG CAP PO SCH (09:55)
--- NOTE | 2021-12-31 13:00 | NUR ---
PT IS RESTING, ALERT AND ORIENTED.AMBULATORY. BREATHING IS EVEN AND UNLABORED. NO SIGNS OF DISTRESS NOTED. CALL LIGHT WITHIN REACH. BED IN LOW LOCKED POSITION. ALL PRECAUTIONS IN PLACE. PT IS STABLE.
[2021-12-31 16:00] VITALS: BP 124/56
--- NOTE | 2021-12-31 19:05 | NUR ---
ENDORSED PT TO MULTINEEDLE SHIRRER NURSE FOR CONTINUITY OF CARE. POC DISCUSSED.
[2021-12-31] MEDS: SIMVASTATIN 20 MG TAB PO SCH (20:18)
[2021-12-31 20:58] VITALS: BP 128/62
[2022-01-01 04:00] VITALS: BP 145/67
[2022-01-01 06:49] LABS: ANION GAP 11.7 (8-16); CARBON DIOXIDE 30.5 mmol/L (21-32); CHLORIDE 103 mmol/L (98-107); GLUCOSE 118 mg/dL (74-106); POTASSIUM 4.2 mmol/L (3.5-5.1); SODIUM SERUM 141 mmol/L (136-145); UREA NITROGEN, BLOOD 18 mg/dL (7-18)
[2022-01-01 07:31] LABS: BASOPHILS # (AUTO) 0.1 K/uL (0.00-0.22); BASOPHILS % (AUTO) 1.4 % (0.0-2.0); EOSINOPHILS # (AUTO) 0.2 K/uL (0-0.4); EOSINOPHILS % (AUTO) 2.7 % (0.0-4.0); HEMATOCRIT 36.8 % (36-48); HEMOGLOBIN 12.1 g/dL (12.0-16.0); LYMPHOCYTES # (AUTO) 3.2 K/uL (2.5-16.5); LYMPHOCYTES % (AUTO) 41.4 % (20.5-51.1); MEAN CORPUSCULAR HEMOGLOBIN 31 pg (27-31); MEAN CORPUSCULAR HGB CONC 33 g/dL (33-37); MEAN CORPUSCULAR VOLUME 95.3 fL (80-94); MONOCYTES # (AUTO) 0.8 K/uL (0.8-1.0); MONOCYTES % (AUTO) 10.3 % (1.7-9.3); NEUTROPHILS # (AUTO) 3.4 K/uL (1.8-7.7); NEUTROPHILS % (AUTO) 44.2 % (42.2-75.2); PLATELET COUNT (AUTO) 202 K/uL (140-450); RED BLOOD CELL COUNT(AUTO) 3.86 MIL/uL (4.20-5.40); WHITE BLOOD COUNT (AUTO) 7.7 K/uL (4.8-10.8)
[2022-01-01 08:00] VITALS: BP 158/74
[2022-01-01] MEDS: PYRIDOXINE 50 MG TAB PO SCH (09:47)
[2022-01-01] MEDS: ISONIAZID 100 MG TAB PO SCH (09:47)
[2022-01-01] MEDS: lisinopriL 20 MG TAB PO SCH (09:48)
[2022-01-01] MEDS: FAMOTIDINE 20 MG TAB PO SCH (09:48)
[2022-01-01] MEDS: BENZONATATE 100 MG CAPLF PO SCH ×3 (09:49→18:00)
[2022-01-01] MEDS: ETHAMBUTOL 400 MG TAB PO SCH (09:49)
[2022-01-01] MEDS: PYRAZINAMIDE 500 MG TAB PO SCH (09:49)
[2022-01-01] MEDS: rifAMPin 300 MG CAP PO SCH (09:49)
--- NOTE | 2022-01-01 11:24 | NUR ---
PT IS STATING SHE HAS NO COUGH AND FEELS GOOD FOR SEVERAL DAYS. PT IS RESTING, ALERT AND ORIENTED.AMBULATORY. BREATHING IS EVEN AND UNLABORED. NO SIGNS OF DISTRESS NOTED. CALL LIGHT WITHIN REACH. BED IN LOW LOCKED POSITION. ALL PRECAUTIONS IN PLACE. PT IS STABLE.
[2022-01-01 13:20] LABS: ALBUMIN 3.6 g/dL (3.4-5.0); BILIRUBIN,DIRECT 0.3 mg/dL (0.0-0.3)
[2022-01-01 16:00] VITALS: BP 144/74
--- NOTE | 2022-01-01 19:25 | NUR ---
PT ENDORSED TO PLASTERER SPOT NURSE FOR CONTINUITY OF CARE. POC DISCUSSED.
--- NOTE | 2022-01-01 19:35 | NUR ---
RECEIVED PT FROM AM NURSE FOR CONTINUITY OF CARE.PATIENT IS STABLE.BREATHING EVEN AND UNLABORED,ALL SAFETY MEASURES IN PLACE
--- NOTE | 2022-01-01 21:30 | NUR ---
ALL MEDS GIVEN TOLERATED WELL, NO DISTRESS NOTED
[2022-01-01] MEDS: SIMVASTATIN 20 MG TAB PO SCH (21:34)
--- NOTE | 2022-01-02 | NUR ---
PATIENT SLEEPING , BREATHING EVEN AND UNLABORED,ALL SAFETY MEASURES IN PLACE,CALL LIGHT WITHIN EASY REACH
--- NOTE | 2022-01-02 02:05 | NUR ---
PATIENT SLEEPING COMFORTABLY,BREATHING EVEN AND UNLABORED ,NO DISTRESS NOTED
[2022-01-02 04:00] VITALS: BP 143/68
--- NOTE | 2022-01-02 04:00 | NUR ---
PATIENT IN BED SLEEPING, BREATHING EVEN AND UNLABORED.NO DISTRESS NOTED
--- NOTE | 2022-01-02 06:00 | NUR ---
PATIENT IS AWAKE,STABLE,BREATHING EVEN AND UNLABORED NO DISTRESS NOTED
[2022-01-02 06:56] LABS: BASOPHILS # (AUTO) 0.1 K/uL (0.00-0.22); BASOPHILS % (AUTO) 0.7 % (0.0-2.0); EOSINOPHILS # (AUTO) 0.3 K/uL (0-0.4); EOSINOPHILS % (AUTO) 3.6 % (0.0-4.0); HEMOGLOBIN 11.4 g/dL (12.0-16.0); LYMPHOCYTES # (AUTO) 2.8 K/uL (2.5-16.5); LYMPHOCYTES % (AUTO) 38.9 % (20.5-51.1); MEAN CORPUSCULAR HEMOGLOBIN 31 pg (27-31); MEAN CORPUSCULAR HGB CONC 34 g/dL (33-37); MEAN CORPUSCULAR VOLUME 93.9 fL (80-94); MONOCYTES # (AUTO) 0.7 K/uL (0.8-1.0); MONOCYTES % (AUTO) 10.1 % (1.7-9.3); NEUTROPHILS # (AUTO) 3.4 K/uL (1.8-7.7); NEUTROPHILS % (AUTO) 46.7 % (42.2-75.2); PLATELET COUNT (AUTO) 191 K/uL (140-450); RED BLOOD CELL COUNT(AUTO) 3.62 MIL/uL (4.20-5.40); RED CELL DISTRIBUTION WIDTH 14.8 % (11.6-13.7); WHITE BLOOD COUNT (AUTO) 7.2 K/uL (4.8-10.8)
--- NOTE | 2022-01-02 07:15 | NUR ---
ENDORSED PATIENT TO AM NURSE FOR CONTINUITY OF CARE,PATIENT IS STABLE
[2022-01-02 07:21] LABS: MAGNESIUM 1.7 mg/dL (1.8-2.4); PHOSPHORUS 3.7 mg/dL (2.5-4.9)
[2022-01-02 07:23] LABS: ANION GAP 12.1 (8-16); CARBON DIOXIDE 28.2 mmol/L (21-32); CHLORIDE 103 mmol/L (98-107); GLUCOSE 111 mg/dL (74-106); POTASSIUM 4.3 mmol/L (3.5-5.1); SODIUM SERUM 139 mmol/L (136-145); UREA NITROGEN, BLOOD 23 mg/dL (7-18)
--- NOTE | 2022-01-02 08:00 | NUR ---
RECEIVED REPORT FROM [facility] FOR CONTINUITY OF CARE. PT A/O X4. ABLE TO MAKE NEEDS KNOWN. NO SOB OR RESPIRATORY DISTRESS. ON RA. RR EVEN & UNLABORED. AFEBRILE. VSS. NEEDS ALL MET AT THIS TIME. SAFE PRECAUTIONS IN PLACE. AIBORNE ISOLATION WITH NEGATIVE PRESSURE. WILL CONTINUE TO MONITOR CLOSELY.
--- NOTE | 2022-01-02 09:30 | NUR ---
SCHEDULED MEDS GIVEN. MEDICATION EDUCATION GIVEN. PT VERBALIZED UNDERSTANDING. PT TOLERATED MEDICATION WELL. HOURLY ROUNDS BEING CONDUCTED. SAFETY MEAUSRES IN PLACE. WILL CONTINUE TO MONITOR CLOSELY.
[2022-01-02] MEDS: BENZONATATE 100 MG CAPLF PO SCH ×3 (09:31→17:26)
[2022-01-02] MEDS: lisinopriL 20 MG TAB PO SCH (09:31)
[2022-01-02] MEDS: ISONIAZID 100 MG TAB PO SCH (09:31)
[2022-01-02] MEDS: PYRIDOXINE 50 MG TAB PO SCH (09:31)
[2022-01-02] MEDS: ETHAMBUTOL 400 MG TAB PO SCH (09:32)
[2022-01-02] MEDS: FAMOTIDINE 20 MG TAB PO SCH (09:32)
[2022-01-02] MEDS: PYRAZINAMIDE 500 MG TAB PO SCH (09:33)
[2022-01-02] MEDS: rifAMPin 300 MG CAP PO SCH (09:33)
[2022-01-02 12:00] VITALS: BP 156/69
--- NOTE | 2022-01-02 13:02 | NUR ---
PROVIDED PT WITH LUNCH TRAY. PT STATES "ACID" IN HER THROAT. EXPLAINED THE MORNING MEDICATION FOR ANTACID AGAIN AND ENCOURAGE PT TO STAY AWAY FROM DAIRY, SPICY, SALTY, OR ACIDIC DRINKS SUCH ORANGE JUICE AND APPLE JUICE. PT VERBALIZED UNDERSTANDING. PT IS AFEBRILE. VSS. NO SOB OR RESPIRATORY DISTRESS. ON AIRBORNE PRECAUTIONS FOR TB. NEEDS ALL MET AT THIS TIME. SAFE PRECAUTIONS IN PLACE. WILL MONITOR CLOSELY.
--- NOTE | 2022-01-02 17:43 | NUR ---
PT STATES NO MORE ACID REFLEX. NEEDS ATTENDED TO. NO COMPLAINTS AT THIS TIME. PT STABLE. IN NO ACUTE DISTRESS. SAFE PRECAUTIONS IN PLACE. HOURLY ROUNDS CONDUCTED.
--- NOTE | 2022-01-02 19:11 | NUR ---
ENDORSED CARE TO SALONI LANG FOR CONTINUITY OF CARE. POC DISCUSSED.
--- NOTE | 2022-01-02 19:25 | NUR ---
RECEIVED PATIENT FROM AM NURSE FOR CONTINUITY OF CARE. PT IS STABLE NO DISTRESS NOTED
[2022-01-02 20:00] VITALS: BP 121/65
[2022-01-02] MEDS: SIMVASTATIN 20 MG TAB PO SCH (21:40)
--- NOTE | 2022-01-02 22:00 | NUR ---
ALL MEDS GIVEN AT THIS TIME,PATIENT STABLE ,NO COMPLAIN OF COUGH,FEVER,PAIN,NO DISTRESS NOTED
--- NOTE | 2022-01-03 | NUR ---
PATIENT ASLEEP,BREATHING EVEN AND UNLABORED.NO DISTRESS NOTED
--- NOTE | 2022-01-03 02:00 | NUR ---
PT SLEEPING COMFORTABLY,ALL SAFETY MEASURES IN PLACE,CALL LIGHT WITHIN REACH
[2022-01-03 04:00] VITALS: BP 111/65
--- NOTE | 2022-01-03 04:00 | NUR ---
PT IN BED RESTING ,NO COUGH OR PAIN,BREATHING EVEN AND UNLABORED
--- NOTE | 2022-01-03 06:00 | NUR ---
PATIENT AWAKE, NO COUGH OR PAIN NOTED BRESTHING EVEN AND UNLABORED
--- NOTE | 2022-01-03 07:18 | NUR ---
ENDORSED PT TO AM NURSE FOR CONTINUITY OF CARE,PATIENT IS IN STABLE CONDITION.
--- NOTE | 2022-01-03 07:22 | NUR ---
RECEIVED REPORT FROM [facility] FOR CONTINUITY OF CARE. PT A/O X4. ABLE TO MAKE NEEDS KNOWN. NO SOB OR RESPIRATORY DISTRESS. ON RA. RR EVEN & UNLABORED. AFEBRILE. NO COUGH NEEDED. NEEDS ALL MET AT THIS TIME. SAFE PRECAUTIONS IN PLACE. CALL LIGHT WITHIN REACH. AIBORNE ISOLATION WITH NEGATIVE PRESSURE. WILL CONTINUE TO MONITOR CLOSELY.
[2022-01-03] MEDS: FAMOTIDINE 20 MG TAB PO SCH (09:32)
[2022-01-03] MEDS: PYRAZINAMIDE 500 MG TAB PO SCH (09:32)
[2022-01-03] MEDS: ISONIAZID 100 MG TAB PO SCH (09:32)
[2022-01-03] MEDS: rifAMPin 300 MG CAP PO SCH (09:33)
[2022-01-03] MEDS: BENZONATATE 100 MG CAPLF PO SCH ×3 (09:33→17:00)
[2022-01-03] MEDS: lisinopriL 20 MG TAB PO SCH (09:34)
[2022-01-03] MEDS: PYRIDOXINE 50 MG TAB PO SCH (09:34)
[2022-01-03] MEDS: ETHAMBUTOL 400 MG TAB PO SCH (09:39)
[2022-01-03 12:00] VITALS: BP 154/73
--- NOTE | 2022-01-03 13:05 | NUR ---
PT IN NO DISTRESS. NO COUGH NOTED. NO SOB OR RESPIRATORY DISTRESS. ON AIRBORNE ISOLATION. NEEDS ALL MET. SAFE PRECAUTIONS IN PLACE. WILL CONTINUE TO MONITOR.
--- NOTE | 2022-01-03 18:00 | NUR ---
PT STATES FAMILY LEFT BELONGING AT PERCUSSION INSTRUCTOR. CONTACTED INTERACTIVE PROJECT MANAGER TO LONE LEAD [place] BELONGINGS. PT IN NO DISTRESS. NO SOB OR RESPIRATORY DISTRESS. ON RA. NO COUGH NOTED. SAFE PRECAUTIONS IN PLACE. WILL CONTINUE TO MONITOR.
--- NOTE | 2022-01-03 19:20 | NUR ---
REPORT GIVEN TO NIGHTSHIFT RNLEAH FOR CONTINUITY OF CARE. POC DISCUSSED.
--- NOTE | 2022-01-03 19:20 | NUR ---
RECEIVED PT AAOX4 , IV SITE INTACT AND PATENT , RA - O2 SAT WNL , CALL LIGHT WITHIN REACH - REMINDS PT. TO USE THE CALL LIGHT WHENEVER SHE NEEDED HELP . PLAN OF CARE DISCUSSED AND VERBALIZES UNDERSTANDING . DENIES PAIN AT THIS TIME . WILL CONT. TO MONITOR .
[2022-01-03 20:00] VITALS: BP 130/79
--- NOTE | 2022-01-03 20:20 | NUR ---
C/O DIZZINESS - BP 130/70 , CO 97 , RR 18 , O2 SAT 97 % , AFEBRILE - WILL REFER DR. NEHAL KOO Addendum: 01/04/22 at 0435 by Aura Zapata RN DR. LOVING - RESPONDED - PER DR. LOVING ORDER - BOLUS NSS 500 CC STAT - WILL CARRY OUT - MNURLR
[2022-01-03] MEDS: NACL 0.9% 500 ML IV SCH ×8 (20:25→23:31)
[2022-01-03] MEDS: SIMVASTATIN 20 MG TAB PO SCH (21:10)
--- NOTE | 2022-01-03 22:00 | NUR ---
ROUNDS - PT SAID THE NO MORE DIZZINESS AT THIS TIME , WILL CONT. TO MONITOR .
--- NOTE | 2022-01-04 | NUR ---
NO COMPLAIN MADE AT THIS TIME , WILL CONT. TO MONITOR .
[2022-01-04] MEDS: NACL 0.9% 500 ML IV SCH ×2 (00:02→00:33)
--- NOTE | 2022-01-04 02:00 | NUR ---
SLEEPING - CHEST RISE AND FALL EQUALLY - CALL LIGHT WITHIN REACH .
[2022-01-04 04:00] VITALS: BP 122/44
--- NOTE | 2022-01-04 04:00 | NUR ---
ROUNDS , NO COMPLAIN MADE .
--- NOTE | 2022-01-04 07:24 | NUR ---
ENDORSED- PT - STABLE
--- NOTE | 2022-01-04 07:25 | NUR ---
RECEIVED REPORT FROM PHARMACOLOGY TEACHER NURSE FOR CONTINUITY OF CARE. PT IS IN BED SLEEPING AT THIS TIME. RESPIRATIONS ARE EVEN AND UNLABORED ON ROOM AIR. PT IS ALERT AND ORIENTATED X4. ABLE TO VERBALIZE NEEDS TO STAFF. PT HAS IV TO L HAND, INTACT AND PATENT. SKIN IS WARM, DRY, AND INTACT. CALL LIGHT WITHIN REACH. ALL SAFETY MEASURES IN PLACE. WILL CONTINUE TO MONITOR.
[2022-01-04 07:59] LABS: ALBUMIN 3.2 g/dL (3.4-5.0); BILIRUBIN,DIRECT 0.2 mg/dL (0.0-0.3); TOTAL BILIRUBIN 0.7 mg/dL (0.0-1.0)
[2022-01-04 08:00] VITALS: BP 116/65
--- NOTE | 2022-01-04 09:00 | NUR ---
THREE ORDERS FOR NACL 0.9% 500ML THAT WERE LEFT NON-ADMINISTERED FROM PREVIOUS SHIFT. THIS NURSE NON-ADMINISTERED ON EMAR, THIS WAS NOT GIVEN DURING MY SHIFT.
[2022-01-04] MEDS: ISONIAZID 100 MG TAB PO SCH (09:02)
[2022-01-04] MEDS: BENZONATATE 100 MG CAPLF PO SCH ×3 (09:03→17:04)
[2022-01-04] MEDS: FAMOTIDINE 20 MG TAB PO SCH (09:03)
[2022-01-04] MEDS: lisinopriL 20 MG TAB PO SCH (09:03)
[2022-01-04] MEDS: PYRIDOXINE 50 MG TAB PO SCH (09:03)
[2022-01-04] MEDS: PYRAZINAMIDE 500 MG TAB PO SCH (09:04)
[2022-01-04] MEDS: rifAMPin 300 MG CAP PO SCH (09:04)
--- NOTE | 2022-01-04 09:05 | NUR ---
ADMINISTERED ALL SCHEDULED MEDICATIONS. EDUCATED PT REGARDING MEDS ADMINISTERED. ANSWERED ALL QUESTIONS. PT VERBALIZED UNDERSTANDING. CALL LIGHT WITHIN REACH. ALL SAFETY MEASURES IN PLACE. WILL CONTINUE TO MONITOR.
[2022-01-04] MEDS: ETHAMBUTOL 400 MG TAB PO SCH (09:07)
--- NOTE | 2022-01-04 13:08 | NUR ---
DID ROUNDS ON PT. PT IN BED RESTING AT THIS TIME. RESPIRATIONS ARE EVEN AND UNLABORED, NO SIGNS OF DISTRESS NOTED. NO SIGNS OF PAIN OR DISCOMFORT NOTED. CALL LIGHT WITHIN REACH. ALL SAFETY MEASURES IN PLACE. WILL CONTINUE TO MONITOR.
--- NOTE | 2022-01-04 15:55 | NUR ---
01/04/22 RD FOLLOW UP COMPLETED PLEASE REFER TO NUTRITION ASSESSMENT UNDER CARE ACTIVITY FOR ESTIMATED NUTRITIONAL NEEDS. 1. CONTINUE REGULAR DIET TOLERATED -RECOMMEND ENSURE BID IF PO INTAKE IS < 75% 2. RD TO FOLLOW-UP 7 DAYS, LOW RISK NAVIN BE, RD
[2022-01-04 16:00] VITALS: BP 136/68
--- NOTE | 2022-01-04 16:13 | NUR ---
PT DAUGHTER CALLED STAFF AND STATED SHE CANNOT GET A HOLD OF HER MOM. PT DAUGHTER CRYING ON PHONE. THIS STAFF MEMBER WENT IN TO PT ROOM AND INFORMED PT THAT HER DAUGHTER HAS BEEN TRYING TO CONTACT HER. PT STARTED LAUGHING AND STATED SHE HAS BEEN ON FACEBOOK AND HAS NOT ANSWERED ANY CALLS. PT STATES SHE WILL CALL DAUGHTER. NO SIGNS OF DISTRESS NOTED. CALL LIGHT WITHIN REACH. WILL CONTINUE TO MONITOR.
--- NOTE | 2022-01-04 19:16 | NUR ---
ENDORSED PT TO HIDE SELECTOR NURSE FOR CONTINUITY OF CARE. PT IS STABLE.
--- NOTE | 2022-01-04 20:43 | NUR ---
PATIENT WELL RESTED IN BED WATCHING TV. AAOX4. ON ROOM AIR. NO ACUTE DISTRESS NOTED. DENIES PAIN. ALL SAFETY PRECAUTIONS ARE IN PLACE. CALL LIGHT WITHIN REACH.
[2022-01-04] MEDS: SIMVASTATIN 20 MG TAB PO SCH (20:44)
--- NOTE | 2022-01-04 20:44 | NUR ---
SCHEDULED MEDICATION DUE GIVEN.
[2022-01-05] VITALS: BP 134/56
--- NOTE | 2022-01-05 02:58 | NUR ---
PATIENT IS SLEEPING. NO SOB NOTED. CALL LIGHT WITHIN REACH
--- NOTE | 2022-01-05 07:20 | NUR ---
ENDORSED PATIENT TO NURSE KENDRICK FOR CONTINUITY OF CARE. PT IS STABLE.
--- NOTE | 2022-01-05 07:21 | NUR ---
RECEIVED ENDORSEMENT FROM CHUCK LANG FOR CONTINUITY OF CARE. PT IS STABLE IN BED. A&OX4. VERBALLY RESPONSIVE AND ABLE TO COMMUNICATE NEEDS. DENIES PAIN. ON ROOM AIR. RESPIRATIONS EVEN AND UNLABORED WITH NO APPARENT S/SX OF ACUTE DISTRESS. PATIENT IS AMBULATORY AND CONTINENT. SKIN IS INTACT. PATIENT'S IV SITE TO THE 20G IS PATENT/INTACT SL. POC UPDATED. ALL SAFETY MEASURES IN PLACE. CALL LIGHT WITHIN REACH. WILL CONTINUE TO MONITOR.
[2022-01-05 08:00] VITALS: BP 138/72
[2022-01-05] MEDS: ETHAMBUTOL 400 MG TAB PO SCH (08:29)
[2022-01-05] MEDS: ISONIAZID 100 MG TAB PO SCH (08:29)
[2022-01-05] MEDS: FAMOTIDINE 20 MG TAB PO SCH (08:29)
[2022-01-05] MEDS: PYRAZINAMIDE 500 MG TAB PO SCH (08:29)
[2022-01-05] MEDS: rifAMPin 300 MG CAP PO SCH (08:30)
[2022-01-05] MEDS: BENZONATATE 100 MG CAPLF PO SCH ×3 (08:30→17:51)
[2022-01-05] MEDS: PYRIDOXINE 50 MG TAB PO SCH (08:30)
[2022-01-05] MEDS: lisinopriL 20 MG TAB PO SCH (08:30)
--- NOTE | 2022-01-05 08:30 | NUR ---
ADMINISTERED SCHEDULED MEDICATION PER MD ORDER. TOLERATED WELL. DENIES PAIN. RESPIRATIONS EVEN AND UNLABORED WITH NO APPARENT S/SX OF ACUTE DISTRESS. ALL SAFETY MEASURES IN PLACE. CALL LIGHT WITHIN REACH. WILL CONTINUE TO MONITOR.
--- NOTE | 2022-01-05 09:32 | NUR ---
PT ENDORSED TO JOHN PAUL MONZON FOR CONTINUITY OF CARE. PT IS STABLE.
--- NOTE | 2022-01-05 09:33 | NUR ---
RECEIVED REPORT FROM KENDRICK MONZON. ASSUMED CARE FOR PT. RESPIRATIONS ARE EVEN AND UNLABORED. NO SIGNS OF DISTRESS NOTED. CALL LIGHT WITHIN REACH. ALL SAFETY MEASURES IN PLACE. WILL CONTINUE TO MONITOR.
--- NOTE | 2022-01-05 12:53 | NUR ---
DID ROUNDS ON PT. RESPIRATIONS ARE EVEN AND UNLABORED ON ROOM AIR. NO SIGNS OF DISTRESS NOTED. CALL LIGHT WITHIN REACH. ALL SAFETY MEASURES IN PLACE. WILL CONTINUE TO MONITOR.
--- NOTE | 2022-01-05 15:49 | NUR ---
PT FAMILY BROUGHT HER SOUP FROM HOME. PT STATES SHE PREFERS WHAT HER FAMILY COOKS FOR SUPPER. PT ATE HALF OF SOUP.
[2022-01-05 16:00] VITALS: BP 140/63
--- NOTE | 2022-01-05 16:35 | NUR ---
PT CALLED AND ASKED IF FAMILY CAN VISIT. INFORMED PT THAT VISITATION IS NOT ALLOWED AT THIS TIME DUE TO AIRBORNE ISOLATION FOR PT. PT VERBALIZED UNDERSTANDING. STATED SHE WOULD JUST FACE TIME WITH HER DAUGHTER. CALL LIGHT WITHIN REACH. NO COMPLAINTS OF PAIN OR DISCOMFORT AT THIS TIME. WILL CONTINUE TO MONITOR.
--- NOTE | 2022-01-05 19:09 | NUR ---
ENDORSED PT TO LINE CLEANER NURSE FOR CONTINUITY OF CARE. NO COMPLAINTS OF PAIN OR DISCOMFORT NOTED. ALL NEEDS MET THROUGHOUT SHIFT. PT IS STABLE.
[2022-01-05] MEDS: SIMVASTATIN 20 MG TAB PO SCH (20:24)
--- NOTE | 2022-01-05 20:24 | NUR ---
SCHEDULED MEDICATION GIVEN.
--- NOTE | 2022-01-05 20:39 | NUR ---
PATIENT COMPLAINED OF HEARTBURN. NOTIFIED DR. MANCIA WITH ORDERS, CARRIED OUT.
[2022-01-05] MEDS ORDERED: ALUMINUM HYD/MAG/SIMETHICONE 30 ML UDC PO PRN (21:35)
--- NOTE | 2022-01-05 22:47 | NUR ---
PT AAOX4, ON ROOM AIR, AMBULATORY. NO SOB NOTED. RESPIRATION EVEN UNLABORED. SAFETY MEASURES IN PLACE. CALL LIGHT WITHIN REACH. WILL CONTINUE TO MONITOR.
[2022-01-06] VITALS: BP_SYST 104; BP_SYST 142; BP_DIAS 60; BP_DIAS 70
--- NOTE | 2022-01-06 07:20 | NUR ---
PATIENT ASLEEP NO DISTRESS NOTED. ON AIR BORNE ISOLATION. RECEIVED ENDORSEMENT FROM MOLDING MACHINE OPERATOR HELPER NURSE FOR CONTINUITY OF CARE.
--- NOTE | 2022-01-06 07:25 | NUR ---
ENDORSED TO AM NURSE FOR CONTINUITY OF CARE. PT IN STABLE CONDITION.
[2022-01-06 08:00] VITALS: BP 131/66
--- NOTE | 2022-01-06 08:33 | NUR ---
PATIENT AWAKE EATING BREAKFAST NO DISTRESS. CALL LIGHT WITH IN EASY REACH.
[2022-01-06] MEDS: PYRIDOXINE 50 MG TAB PO SCH (08:38)
[2022-01-06] MEDS: lisinopriL 20 MG TAB PO SCH (08:38)
[2022-01-06] MEDS: BENZONATATE 100 MG CAPLF PO SCH ×3 (08:38→17:04)
[2022-01-06] MEDS: FAMOTIDINE 20 MG TAB PO SCH (08:39)
[2022-01-06] MEDS: ISONIAZID 100 MG TAB PO SCH (08:39)
[2022-01-06] MEDS: rifAMPin 300 MG CAP PO SCH (08:40)
[2022-01-06] MEDS: PYRAZINAMIDE 500 MG TAB PO SCH (08:40)
[2022-01-06] MEDS: ETHAMBUTOL 400 MG TAB PO SCH (08:40)
--- NOTE | 2022-01-06 10:34 | NUR ---
PATIENT ALERT ABLE TO MAKE NEEDS KNOWN RESPIRATION EVEN AND NOT LABORED NO SHORTNESS OF BREATH. NO COUGH , FEVER , CHILLS OR WEAK NESS NOTED. NO ADVERSE REACTION NOTED ON MEDICATION. PATIENT SITTING NEAR THE WINDOW. ISOLATION PRECAUTION OBSERVED.
--- NOTE | 2022-01-06 12:30 | NUR ---
PATIENT ON BED RESTING WAITING FOR LUNCH. CALL LIGHT WITH IN EASY REACH.
--- NOTE | 2022-01-06 14:30 | NUR ---
PATIENT ON BED ASLEEP WITH CALL LIGHT IN EASY REACH.
[2022-01-06 16:00] VITALS: BP 130/54
--- NOTE | 2022-01-06 16:30 | NUR ---
PATIENT ON STABLE CONDITION NO FEVER, WITH OCCASIONAL COUGH NO SPUTUM NOTED. NO SHORTNESS OF BREATH, WEAKNESS OR NIGHT SWEAT.
--- NOTE | 2022-01-06 17:00 | NUR ---
GIVEN HER MEDIATION TOLERATED WELL. CALL LIGHT WITH IN EASY REACH.
--- NOTE | 2022-01-06 18:22 | NUR ---
PATIENT ON STABLE CONDITION. EATING DINNER ALL SAFETY MEASURE IN PLACE.
--- NOTE | 2022-01-06 19:30 | NUR ---
ENDORSE TO CLINICAL DOCUMENTATION CONSULTANT NURSE FOR CONTINUITY OF CARE.
--- NOTE | 2022-01-06 19:40 | NUR ---
RECEIVED PATIENT FROM YARA BARRON FOR CONTINUITY OF CARE.BREATHING EVEN AND UNLABORED,STABLE
[2022-01-06 20:00] VITALS: BP 116/57
[2022-01-06] MEDS: SIMVASTATIN 20 MG TAB PO SCH (20:12)
--- NOTE | 2022-01-06 21:35 | NUR ---
MEDS GIVEN TOLERATED WELL,NO COUGH OR FEVER AT THIS TIME,NO DISTRESS NOTED
--- NOTE | 2022-01-07 | NUR ---
PATIENT SLEEPING ,BREATHING EVEN AND UNLABORED,NO DISTRESS NOTED
--- NOTE | 2022-01-07 02:00 | NUR ---
PATIENT ASLEEP,BREATHING EVEN AND UNLABORED,NO DISTRESS NOTED.
[2022-01-07 04:00] VITALS: BP 131/57
--- NOTE | 2022-01-07 04:00 | NUR ---
PATIENT RESTING IN BED,BREATHING EVEN AND UNLABORED,NO DISTRESS NOTED
--- NOTE | 2022-01-07 06:00 | NUR ---
PATIENT IS AWAKE ,NO COUGH OR FEVER NOTED,BREATHING EVEN AND UNLABORED
--- NOTE | 2022-01-07 07:25 | NUR ---
RECEIVED REPORT FROM RECEIVER STOCKER NURSE FOR CONTINUITY OF CARE. PT ASLEEP IN BED. BREATHING SYMMETRICAL. FLACC O. LEFT HAND 20G ON SALINE LOCK. AIRBORNE PRECAUTIONS ON PLACE. CALL LIGHT WITHIN REACH. ALL SAFETY MEASURES IN PLACE.
--- NOTE | 2022-01-07 07:26 | NUR ---
ENDORSED PATIENT TO AM NURSE FOR CONTINUITY OF CARE, PATIENT IS STABLE.
[2022-01-07] MEDS: ETHAMBUTOL 400 MG TAB PO SCH (09:13)
[2022-01-07] MEDS: FAMOTIDINE 20 MG TAB PO SCH (09:13)
[2022-01-07] MEDS: ISONIAZID 100 MG TAB PO SCH (09:13)
[2022-01-07] MEDS: BENZONATATE 100 MG CAPLF PO SCH ×3 (09:14→17:00)
[2022-01-07] MEDS: PYRIDOXINE 50 MG TAB PO SCH (09:14)
[2022-01-07] MEDS: PYRAZINAMIDE 500 MG TAB PO SCH (09:14)
[2022-01-07] MEDS: lisinopriL 20 MG TAB PO SCH (09:14)
[2022-01-07] MEDS: rifAMPin 300 MG CAP PO SCH (09:14)
--- NOTE | 2022-01-07 11:30 | NUR ---
PT UP ON CHAIR AT BEDSIDE, KNITTING. BREATHING SYMMETRICAL. DENIES PAIN AT THIS TIME. CALL LIGHT WITHIN REACH. ALL SAFETY MEASURES IN PLACE.
--- NOTE | 2022-01-07 13:31 | NUR ---
PT REQUESTING FOR MUCINEX 600MG FOR COUGH. PT NOT COUGHING AT THIS TIME BUT STATED SHE WAS COUGHING A LOT LAST NIGHT. ALSO PT'S LAST LABS WERE ON 01/02. DR MONROY MADE AWARE WITH ORDER FOR MUCINEX 600MG BID AND CBC/BMP TOMORROW.
--- NOTE | 2022-01-07 14:31 | NUR ---
PT ASLEEP IN BED. BREATHING SYMMETRICAL. FLACC O. CALL LIGHT WITHIN REACH. ALL SAFETY MEASURES IN PLACE. AIRBORNE PRECAUTIONS IN PLACE.
--- NOTE | 2022-01-07 15:30 | NUR ---
PT AWAKE, SITTING ON THE BED. BREATHING SYMMETRICAL. DENIES PAIN AT THIS TIME. NO COUGHING NOTED AT THIS TIME. CALL LIGHT WITHIN REACH. ALL SAFETY MEASURES IN PLACE.
[2022-01-07 16:00] VITALS: BP 138/72
[2022-01-07 17:47] LABS: ANION GAP 10.7 (8-16); ASPARTATE AMINOTRANSFERASE 22 U/L (15-37); CARBON DIOXIDE 30.3 mmol/L (21-32); CHLORIDE 101 mmol/L (98-107); CREATININE 1.1 mg/dL (0.6-1.3); GLUCOSE 145 mg/dL (74-106); SODIUM SERUM 138 mmol/L (136-145); TOTAL BILIRUBIN 0.5 mg/dL (0.0-1.0); UREA NITROGEN, BLOOD 21 mg/dL (7-18)
--- NOTE | 2022-01-07 19:10 | NUR ---
REPORT GIVEN TO TOOL BUILDER NURSE FOR CONTINUITY OF CARE. PT IN STABLE CONDITION
--- NOTE | 2022-01-07 19:25 | NUR ---
RECEIVED PATIENT FROM AM NURSE FOR CONTINUITY OF CARE,PATIENT IS STABLE
[2022-01-07] MEDS: SIMVASTATIN 20 MG TAB PO SCH (20:45)
[2022-01-07] MEDS: guaiFENesin 600 MG TABER PO SCH (20:45)
--- NOTE | 2022-01-07 21:30 | NUR ---
ALL MEDS GIVEN,NO COUGHING NOTED,VS WNL,NO DISTRESS NOTED
[2022-01-08] VITALS: BP 121/55
--- NOTE | 2022-01-08 | NUR ---
PATIENT SLEEPING AT THIS TIME, BREATHING EVEN AND UNLABORED
--- NOTE | 2022-01-08 | NUR ---
PATEINT SLEEPING,BREATHING EVEN AND UNLABORED NO DISTRESS NOTED
--- NOTE | 2022-01-08 02:00 | NUR ---
PATIENT ASLEEP ,,BREATHING EVEN AND UNLABORED,NO DISTRESS NOTED
--- NOTE | 2022-01-08 04:00 | NUR ---
PATEINT SLEEPING,BREATHING EVEN AND UNLABORED NO DISTRESS NOTED
--- NOTE | 2022-01-08 06:00 | NUR ---
PATIENT AWAKE SITTING AT BEDSIDE,NO COUGHING NOTED,RESPIRATION EVEN AND UNLABORED
[2022-01-08 07:29] LABS: ANION GAP 13.3 (8-16); CARBON DIOXIDE 28.3 mmol/L (21-32); CHLORIDE 101 mmol/L (98-107); GLUCOSE 139 mg/dL (74-106); POTASSIUM 4.6 mmol/L (3.5-5.1); SODIUM SERUM 138 mmol/L (136-145); UREA NITROGEN, BLOOD 20 mg/dL (7-18)
--- NOTE | 2022-01-08 07:30 | NUR ---
RECEIVED REPORT FROM PM SHIFT RICKEY GUALLPA FOR CONTINUITY OF CARE. PT. ALERT,STABLE ON ROOM AIR. NOT IN DISTRESS. BREATHINGS EVEN AND UNLABORED. CALL LIGHT WITHIN REACH. WILL CONTINUE TO MJONITOR THE PT.
[2022-01-08 08:00] VITALS: BP 143/75
[2022-01-08] MEDS: BENZONATATE 100 MG CAPLF PO SCH ×3 (08:38→16:53)
[2022-01-08] MEDS: guaiFENesin 600 MG TABER PO SCH ×2 (08:38→20:20)
[2022-01-08] MEDS: ISONIAZID 100 MG TAB PO SCH (08:39)
[2022-01-08] MEDS: PYRIDOXINE 50 MG TAB PO SCH (08:39)
[2022-01-08] MEDS: FAMOTIDINE 20 MG TAB PO SCH (08:40)
[2022-01-08] MEDS: lisinopriL 20 MG TAB PO SCH (08:40)
[2022-01-08] MEDS: rifAMPin 300 MG CAP PO SCH (08:40)
[2022-01-08] MEDS: ETHAMBUTOL 400 MG TAB PO SCH (08:41)
[2022-01-08] MEDS: PYRAZINAMIDE 500 MG TAB PO SCH (08:42)
[2022-01-08 09:40] LABS: BASOPHILS # (AUTO) 0.1 K/uL (0.00-0.22); LYMPHOCYTES # (AUTO) 3.8 K/uL (2.5-16.5); NEUTROPHILS # (AUTO) 4.8 K/uL (1.8-7.7)
[2022-01-08 09:42] LABS: EOSINOPHILS # (AUTO) 0.3 K/uL (0-0.4); EOSINOPHILS % (AUTO) 3.4 % (0.0-4.0); HEMATOCRIT 33.2 % (36-48); HEMOGLOBIN 11.2 g/dL (12.0-16.0); LYMPHOCYTES % (AUTO) 39.4 % (20.5-51.1); MEAN CORPUSCULAR HEMOGLOBIN 32 pg (27-31); MEAN CORPUSCULAR HGB CONC 34 g/dL (33-37); MEAN CORPUSCULAR VOLUME 94.8 fL (80-94); MONOCYTES # (AUTO) 0.6 K/uL (0.8-1.0); MONOCYTES % (AUTO) 6.5 % (1.7-9.3); NEUTROPHILS % (AUTO) 49.7 % (42.2-75.2); PLATELET COUNT (AUTO) 330 K/uL (140-450); RED BLOOD CELL COUNT(AUTO) 3.51 MIL/uL (4.20-5.40); RED CELL DISTRIBUTION WIDTH 14.3 % (11.6-13.7); WHITE BLOOD COUNT (AUTO) 9.7 K/uL (4.8-10.8)
--- NOTE | 2022-01-08 10:00 | NUR ---
ADMINISTERED DUE MEDICATIONS ORDER. PT. TOLERATED WELL. PT. ALERT,SITTING IN THE BED. STABLE. NO NOTED DFISTRESS .CALL LIGHT WITHIN REACH. WILL CONTINUE TO MONITOR THE PT
--- NOTE | 2022-01-08 13:30 | NUR ---
MADE ROUND. PT. SITTING IN THE CHAIR. FREEMAN,AWAKE ORIENTED STABLE ON ROOM AIR. NO RESP. DISTRESS NOTED. CALL LIGHT WITHIN REACH. WILL CONTINUE TO MONITOR THE PT.
[2022-01-08 16:00] VITALS: BP 150/67
--- NOTE | 2022-01-08 17:44 | NUR ---
OPAL, PT. COMFORTABLY LYING IN THE NBED
--- NOTE | 2022-01-08 17:45 | NUR ---
ROUNDS, PT. COMFORTABLY LYING IN THE BED. STABLE ON ROOM AIR. NO RESP. DISTRESS NOTED. ALL SAFETY MEASURES IN PLACE. WILL CONTINUE TO MONITOR THE PT.
--- NOTE | 2022-01-08 19:09 | NUR ---
ENDORSED REPORT TO PM SHIFT RICKEY HUNTER FOR CONTINUITY OF CARE. PT. STABLE.
--- NOTE | 2022-01-08 19:30 | NUR ---
Received report on patient for continuation of care. Pt alert and oriented. On RA. Denies Pain. Vitals taken, stable. No complaints. Continue to monitor per protocol. Call light within reach. Safety precautions in place.
--- NOTE | 2022-01-08 20:14 | NUR ---
Administered medications per eMAR. Pt tolerated PO well. No complaints.
[2022-01-08] MEDS: SIMVASTATIN 20 MG TAB PO SCH (20:21)
[2022-01-09] VITALS: BP 151/67
--- NOTE | 2022-01-09 | NUR ---
PATIENT SLEEPING,BREATHING EVEN AND UNLABORED NO DISTRESS NOTED
--- NOTE | 2022-01-09 03:56 | NUR ---
PT ASLEEP. VISIBLE CHEST RISE AND FALL NOTED. NO S/SX DISTRESS NOTED. WILL CONTINUE TO MONITOR.
--- NOTE | 2022-01-09 06:24 | NUR ---
PT IS STABLE. NO ACUTE EVENTS THROUGHOUT THE NIGHT. NO S/SX OF DISTRESS AT THIS MOMENT. ALL NEEDS ATTENDED. ALL PRECAUTIONS IN PLACE. CALL LIGHT WITHIN REACH. WILL ENDORSE TO AM SHIFT NURSE.
--- NOTE | 2022-01-09 07:23 | NUR ---
REPORT RECEIVED FROM PM SHIFT RICKEY HUNTER FOR CONTINUITY OF CARE. PT. ALERT, STABLE, RESTING IN THE BED. NO ACUTE DISTRESS NOTED ON ROOM AIR. ALL SAFETY MEASURES IN PLACE. CALL LIGHT WITHIN REACH. WILL CONTINUE TO MONITOR THE PT.
[2022-01-09 08:00] VITALS: BP 151/67
[2022-01-09] MEDS: BENZONATATE 100 MG CAPLF PO SCH ×3 (09:15→17:07)
[2022-01-09] MEDS: ISONIAZID 100 MG TAB PO SCH (09:16)
[2022-01-09] MEDS: PYRIDOXINE 50 MG TAB PO SCH (09:16)
[2022-01-09] MEDS: lisinopriL 20 MG TAB PO SCH (09:17)
[2022-01-09] MEDS: PYRAZINAMIDE 500 MG TAB PO SCH ×2 (09:17→09:22)
[2022-01-09] MEDS: ETHAMBUTOL 400 MG TAB PO SCH ×2 (09:18→09:21)
[2022-01-09] MEDS: rifAMPin 300 MG CAP PO SCH (09:18)
[2022-01-09] MEDS: FAMOTIDINE 20 MG TAB PO SCH (09:21)
--- NOTE | 2022-01-09 09:30 | NUR ---
ADMINISTERED SCHEDULED MEDICATIONS. PT. TOLERATED WELL. WILL CONT. TO MONITOR THE PT.
[2022-01-09] MEDS: guaiFENesin 600 MG TABER PO SCH ×2 (11:16→21:11)
--- NOTE | 2022-01-09 11:17 | NUR ---
MADE ROUND, PT. COMFORTABLY LYING IN THE BED. NO DISTRESS NOTED ON ROOM AIR. CALL LIGHT WITHIN REACH. WILL CONTINUE TO MONITOR THE PT.
--- NOTE | 2022-01-09 15:23 | NUR ---
MADE ROUND. PT. ALERT, STABLE ON ROOM AIR. COMFORTABLY LYING IN THR BED. DENIES ANY PAIN OR DISCOMFORT. CALL LIGHT WITHIN REACH. WILL CONTINUE TO MONITOR THE PT.
[2022-01-09 16:00] VITALS: BP 153/67
--- NOTE | 2022-01-09 19:30 | NUR ---
REPORT GIVEN TO PM SHIFT NURSE SAVAGE FOR CONTINUITY OF CARE. PT. STABLE.
--- NOTE | 2022-01-09 19:31 | NUR ---
RECD SITTING IN BED, AWAKE, A/OX4. RESPIRATION EVEN AND UNLABORED. IV SALINE LOCK AT THE LEFT HAND G20, PATENT AND INTACT. ABLE TO AMBULATE BY HERSELF TO THE BR. VERBALIZED SHE COUGHS OCCASIONALLY BUT NO PHLEGM COMES OUT. INSTRUCTION GIVEN ON HOW TO COLLECT SPUTUM FOR LAB TEST TOMORROW. VERBALIZED UNDERSTANDING. DENIES PAIN 0/10.
[2022-01-09 20:00] VITALS: BP 144/71
--- NOTE | 2022-01-09 20:00 | NUR ---
Patient's Plan of Care was discussed and reviewed with NA WAN.
--- NOTE | 2022-01-09 21:00 | NUR ---
INQUIRED IF SHE NEEDS ANYTHING LIKE SNACKS, VERBALIZED SHE IS NOT HUNGRY BUT WILL JUST DRINK MILK BEFORE SHE WILL SLEEP. INSTRUCTED TO CALL NURSE IF EVER NEEDING HELP.
[2022-01-09] MEDS: SIMVASTATIN 20 MG TAB PO SCH (21:11)
--- NOTE | 2022-01-10 | NUR ---
SLEEPING COMFORTABLY IN BED, RESPIRATION EVEN AND UNLABORED. CALL LIGHT IN REACH.
--- NOTE | 2022-01-10 02:00 | NUR ---
CHECKED PATIENT, LAYING ON HER LEFT SIDE, COMFORTABLY ASLEEP.
[2022-01-10 04:00] VITALS: BP 101/68
--- NOTE | 2022-01-10 04:00 | NUR ---
AWAKE IN BED, VERBALIZED SHE HAS NO SPUTUM SPECIMEN YET BECAUSE SHE WAS ABLE TO COUGH BUT NO PHLEGM CAME OUT. WILL TRY AGAIN.
--- NOTE | 2022-01-10 06:43 | NUR ---
RESTING IN BED HALF ASLEEP, STILL UNABLE TO COUGHED OUT SPUTUM FOR TEST. ENCOURAGED TO TRY HER BEST TO COUGH OUT SOME PHLEGM.
--- NOTE | 2022-01-10 07:20 | NUR ---
RECEIVED REPORT FROM INSIDE SALES ADVISOR NURSE FOR CONTINUITY OF CARE. PT ASLEEP IN BED. BREATHING SYMMETRICAL ON ROOM AIR. FLACC O. NO COUGHING NOTED. L HAND 20G ON SALINE LOCK. CALL LIGHT WITHIN REACH. ALL SAFETY MEASURES IN PLACE.
--- NOTE | 2022-01-10 07:25 | NUR ---
CONDITION REMAIN STABLE. ENDORSED TO AM SHIFT NURSE FOR CONTINUITY OF CARE.
[2022-01-10 08:00] VITALS: BP 121/54
--- NOTE | 2022-01-10 08:30 | NUR ---
PT'S LAST BLOOD DRAW WAS 01/08, DR FARHA MADE AWARE STATED GET ONE TOMORROW.
--- NOTE | 2022-01-10 09:30 | NUR ---
REMINDED PT REGARDING SPUTUM SAMPLE COLLECTION. NO NOTED COUGHING EPISODES AT THIS TIME. PT ALSO VERBALIZED SHE'S HASN'T BEEN COUGHING SHE USED TO.
[2022-01-10] MEDS: ISONIAZID 100 MG TAB PO SCH (09:50)
[2022-01-10] MEDS: lisinopriL 20 MG TAB PO SCH (09:51)
[2022-01-10] MEDS: guaiFENesin 600 MG TABER PO SCH ×2 (09:51→20:04)
[2022-01-10] MEDS: rifAMPin 300 MG CAP PO SCH (09:51)
[2022-01-10] MEDS: BENZONATATE 100 MG CAPLF PO SCH ×3 (09:51→17:00)
[2022-01-10] MEDS: PYRIDOXINE 50 MG TAB PO SCH (09:51)
[2022-01-10] MEDS: FAMOTIDINE 20 MG TAB PO SCH (09:51)
--- NOTE | 2022-01-10 10:30 | NUR ---
OBTAINED SPUTUM SAMPLE FROM PT, SAMPLE SENT TO LAB
--- NOTE | 2022-01-10 14:28 | NUR ---
PT ASLEEP IN BED. BREATHING SYMMETRICAL ON ROOM AIR. FLACC O. CALL LIGHT WITHIN REACH. ALL SAFETY MEASURES IN PLACE.
[2022-01-10 16:00] VITALS: BP 122/61
--- NOTE | 2022-01-10 18:09 | NUR ---
PT AWAKE IN BED, ABLE TO AMBULATE. BREATHING SYMMETRICAL. NO COUGHING NOTED. DENIES PAIN AT THIS TIME. ENCOURAGED TO ALWAYS CALL FOR ASSISTANCE. CALL LIGHT WITHIN REACH.
--- NOTE | 2022-01-10 19:30 | NUR ---
ENDORSED PT TO JUNIOR MANUFACTURING ENGINEER NURSE. PT IN STABLE CONDITION
--- NOTE | 2022-01-10 19:40 | NUR ---
RECEIVED BEDSIDE REPORT FROM DAY SHIFT RN FOR CONTINUITY OF CARE. PT IS SLEEPING IN BED COMFORTABLY. PT IS NOT IN ANY DISTRESS. BREATHING RHYTHMIC AND UNLABORED. CALL LIGHT WITHIN REACH. COMMUNICATION BOARD UPDATED. ALL SAFETY MEASURES TAKEN. WILL CONTINUE TO MONITOR THE PT.
[2022-01-10] MEDS: SIMVASTATIN 20 MG TAB PO SCH (20:05)
--- NOTE | 2022-01-10 20:10 | NUR ---
ALL DUE MEDS GIVEN. NO ADVERSE REACTION NOTED. WILL CONTINUE TO MONITOR THE PT.
[2022-01-11 04:00] VITALS: BP 152/70
--- NOTE | 2022-01-11 07:14 | NUR ---
ENDORSED PT TO DAY SHIFT RN FOR CONTINUITY OF CARE. PT IS STABLE.
--- NOTE | 2022-01-11 07:15 | NUR ---
RECEIVED PATIENT FROM HAIR ASSISTANT FOR CONTINUITY OF CARE. PATIENT IS A/A/O X4. RESPIRATORY EVEN AND UNLABORED, ON ROOM AIR. NO SIGN OF DISTRESS NOTED. SKIN WARM, DRY, NON DIAPHORETIC. IV ON LEFT HAND 20G, INTACT AND PATENT, SALINE LOCK. PATIENT DENIES ANY PAIN OR DISCOMFORT. ABLE TO MAKE NEED KNOWN. PLAN OF CARE DISCUSSED, PATIENT VERBALIZED UNDERSTANDING. PRECAUTION IN PLACE. CALL LIGHT WITHIN REACH. WILL CONTINUE TO MONITOR.
[2022-01-11 07:17] LABS: BASOPHILS % (AUTO) 0.6 % (0.0-2.0); EOSINOPHILS # (AUTO) 0.3 K/uL (0-0.4); EOSINOPHILS % (AUTO) 4.7 % (0.0-4.0); HEMATOCRIT 32.9 % (36-48); LYMPHOCYTES # (AUTO) 2.9 K/uL (2.5-16.5); LYMPHOCYTES % (AUTO) 42.2 % (20.5-51.1); MEAN CORPUSCULAR HEMOGLOBIN 32 pg (27-31); MEAN CORPUSCULAR HGB CONC 33 g/dL (33-37); MEAN CORPUSCULAR VOLUME 94.3 fL (80-94); MONOCYTES # (AUTO) 0.7 K/uL (0.8-1.0); MONOCYTES % (AUTO) 10.6 % (1.7-9.3); NEUTROPHILS # (AUTO) 2.9 K/uL (1.8-7.7); NEUTROPHILS % (AUTO) 41.9 % (42.2-75.2); PLATELET COUNT (AUTO) 224 K/uL (140-450); RED BLOOD CELL COUNT(AUTO) 3.49 MIL/uL (4.20-5.40); RED CELL DISTRIBUTION WIDTH 14.2 % (11.6-13.7); WHITE BLOOD COUNT (AUTO) 6.9 K/uL (4.8-10.8)
[2022-01-11 07:43] LABS: ANION GAP 11.2 (8-16); CARBON DIOXIDE 27.2 mmol/L (21-32); CHLORIDE 101 mmol/L (98-107); CREATININE 0.9 mg/dL (0.6-1.3); GLUCOSE 118 mg/dL (74-106); POTASSIUM 4.4 mmol/L (3.5-5.1); SODIUM SERUM 135 mmol/L (136-145); UREA NITROGEN, BLOOD 23 mg/dL (7-18)
[2022-01-11] MEDS: BENZONATATE 100 MG CAPLF PO SCH ×3 (09:03→17:18)
[2022-01-11] MEDS: lisinopriL 20 MG TAB PO SCH (09:03)
[2022-01-11] MEDS: PYRIDOXINE 50 MG TAB PO SCH (09:03)
[2022-01-11] MEDS: ISONIAZID 100 MG TAB PO SCH (09:03)
[2022-01-11] MEDS: guaiFENesin 600 MG TABER PO SCH ×2 (09:04→20:31)
[2022-01-11] MEDS: ETHAMBUTOL 400 MG TAB PO SCH (09:04)
[2022-01-11] MEDS: rifAMPin 300 MG CAP PO SCH (09:04)
[2022-01-11] MEDS: FAMOTIDINE 20 MG TAB PO SCH (09:04)
--- NOTE | 2022-01-11 09:04 | NUR ---
SCHEDULE MEDICATIONS GIVEN WITH EDUCATION. PATIENT VERBALIZED UNDERSTANDING. PATIENT TOLERATED WELL, NO SIGN OF DISTRESS NOTED. PRECAUTION IN PLACE. CALL LIGHT WITHIN REACH. WILL CONTINUE TO MONITOR.
[2022-01-11] MEDS: PYRAZINAMIDE 500 MG TAB PO SCH (09:05)
[2022-01-11 10:04] LABS: BILIRUBIN,DIRECT 0.1 mg/dL (0.0-0.3); TOTAL BILIRUBIN 0.4 mg/dL (0.0-1.0)
--- NOTE | 2022-01-11 12:28 | NUR ---
PATIENT IS AWAKE, RESTING IN BED, NO SIGN OF DISTRESS NOTED. PRECAUTION IN PLACE. CALL LIGHT WITHIN REACH. WILL CONTINUE TO MONITOR.
--- NOTE | 2022-01-11 14:20 | NUR ---
PATIENT IS RESTING IN BED, NO SIGN OF DISTRESS NOTED. PRECAUTION IN PLACE. CALL LIGHT WITHIN REACH. WILL CONTINUE TO MONITOR.
[2022-01-11 16:00] VITALS: BP 146/54
--- NOTE | 2022-01-11 16:15 | NUR ---
PATIENT IS AWAKE, RESTING IN BED, NO SIGN OF DISTRESS NOTED. PRECAUTION IN PLACE. CALL LIGHT WITHIN REACH. WILL CONTINUE TO MONITOR.
--- NOTE | 2022-01-11 19:17 | NUR ---
ENDORSED PATIENT TO INDUSTRIAL MAINTENANCE MECHANIC NURSE FOR CONTINUITY OF CARE. PATIENT IS STABLE.
[2022-01-11 20:00] VITALS: BP 148/72
[2022-01-11] MEDS: SIMVASTATIN 20 MG TAB PO SCH (20:32)
--- NOTE | 2022-01-11 20:40 | NUR ---
ALL DUE MEDS GIVEN. NO ADVERSE REACTION NOTED. WILL CONTINUE TO MONITOR THE PT.
[2022-01-12 04:00] VITALS: BP 101/54
--- NOTE | 2022-01-12 07:18 | NUR ---
ENDORSED PT TO DAY SHIFT RN FOR CONTINUITY OF CARE. PT IS STABLE.
--- NOTE | 2022-01-12 07:25 | NUR ---
RECEIVED REPORT FROM STONE HAND NURSE FOR CONTINUITY OF CARE. PATIENT ASLEEP KYLE AIR BORN ISOLATION. ALL SAFETY MEASURE IN PLACE.
[2022-01-12] MEDS: ISONIAZID 100 MG TAB PO SCH (08:45)
[2022-01-12] MEDS: BENZONATATE 100 MG CAPLF PO SCH ×3 (08:46→17:35)
[2022-01-12] MEDS: PYRIDOXINE 50 MG TAB PO SCH (08:46)
[2022-01-12] MEDS: FAMOTIDINE 20 MG TAB PO SCH (08:46)
[2022-01-12] MEDS: guaiFENesin 600 MG TABER PO SCH ×2 (08:46→20:34)
[2022-01-12] MEDS: ETHAMBUTOL 400 MG TAB PO SCH (08:47)
[2022-01-12] MEDS: rifAMPin 300 MG CAP PO SCH (08:47)
[2022-01-12] MEDS: lisinopriL 20 MG TAB PO SCH (08:47)
[2022-01-12] MEDS: PYRAZINAMIDE 500 MG TAB PO SCH (08:48)
--- NOTE | 2022-01-12 08:55 | NUR ---
PATIENT AWAKE NO DISTRESS NOTED WITH OCCASIONAL COUGH. GIVEN ALL ORAL MEDICATION TOLERATED WELL. ALL SAFETY MEASURE IN PLACE.
--- NOTE | 2022-01-12 11:33 | NUR ---
RECEIVED PATIENT REPORT FROM NA DUNCAN FOR CONTINUITY OF CARE. PT IS STABLE.
--- NOTE | 2022-01-12 12:31 | NUR ---
ALL SCHEDULED MEDS GIVEN. PT IS STABLE. NO DISTRESS NOTED. WILL CONTINUE TO MONITOR.
[2022-01-12 16:00] VITALS: BP 146/65
--- NOTE | 2022-01-12 17:40 | NUR ---
ALL SCHEDULED MEDS GIVEN. PT IS STABLE. NO DISTRESS NOTED. WILL CONTINUE TO MONITOR
--- NOTE | 2022-01-12 19:27 | NUR ---
ENDORSED TO COATING MANAGER NURSE FOR CONTINUITY OF CARE. PT IS STABLE.
--- NOTE | 2022-01-12 19:30 | NUR ---
RECEIVED REPORT FROM MORNING SHIFT RN. PATIENT RESTING ON BED. VSS. PATIENT DESPERATE TO GO HOME. EXPLAINED PUBLIC HEALTH AUTHORITIES WILL DECIDE ON DISCHARGE, VERBALIZED UNDERSTANDING. WILL CONTINUE TO MONITOR PATIENT.
[2022-01-12] MEDS: SIMVASTATIN 20 MG TAB PO SCH (20:33)
--- NOTE | 2022-01-12 21:33 | NUR ---
CPT PERFORMED. PATIENT ABLE TO COUGH OUT SPUTUM. SP[employer]UM [employer] COLLECTED AND SENT TO LAB
[2022-01-13] VITALS: BP 127/59
--- NOTE | 2022-01-13 04:30 | NUR ---
PATIENT RESTING ON BED. NO COMPLAINTS OF PAIN. VSS. ALL NEEDS ATTENDED. WILL CONTINUE TO MONITOR PATIENT.
--- NOTE | 2022-01-13 07:26 | NUR ---
REPORT GIVEN TO MORNING SHIFT RNMAYDA PATIENT RESTING ON BED, STABLE AT THIS TIME.
--- NOTE | 2022-01-13 07:30 | NUR ---
RECEIVED REPORT FROM SHOESHINER RN FOR CONTINUITY OF CARE. AOX4, ABLE TO MAKE NEEDS KNOWN. ON ROOM AIR AND NO RESPIRATORY DISTRESS NOTED. SKIN IS WARM, DRY, AND INTACT. IV SITE ON LH 20 G SALINE LOCKED. INTACT AND PATENT. PT DENIES PAIN AT THE MOMENT. EXPLAINED PUBLIC HEALTH AUTHORITIES WILL DECIDE ON DISCHARGE, VERBALIZED UNDERSTANDING. SAFETY PRECAUTIONS IN PLACE. CALL LIGHT WITHIN REACH. WILL CONTINUE TO MONITOR PATIENT.
[2022-01-13 08:00] VITALS: BP 100/43
[2022-01-13] MEDS: BENZONATATE 100 MG CAPLF PO SCH ×3 (09:44→17:00)
[2022-01-13] MEDS: lisinopriL 20 MG TAB PO SCH (09:44)
[2022-01-13] MEDS: guaiFENesin 600 MG TABER PO SCH ×2 (09:44→21:15)
[2022-01-13] MEDS: ISONIAZID 100 MG TAB PO SCH (09:45)
[2022-01-13] MEDS: FAMOTIDINE 20 MG TAB PO SCH (09:45)
[2022-01-13] MEDS: ETHAMBUTOL 400 MG TAB PO SCH (09:45)
--- NOTE | 2022-01-13 09:45 | NUR ---
ALL SCHEDULED MEDS GIVEN. PT IS STABLE. NO DISTRESS NOTED. WILL CONTINUE TO MONITOR.
[2022-01-13] MEDS: PYRAZINAMIDE 500 MG TAB PO SCH (09:46)
[2022-01-13] MEDS: rifAMPin 300 MG CAP PO SCH (09:46)
[2022-01-13] MEDS: PYRIDOXINE 50 MG TAB PO SCH (09:46)
--- NOTE | 2022-01-13 12:50 | NUR ---
ALL SCHEDULED MEDS GIVEN. PT IS STABLE. NO DISTRESS NOTED. WILL CONTINUE TO MONITOR.
--- NOTE | 2022-01-13 14:10 | NUR ---
CHECKED ON PATIENT. PT IS STABLE. NO DISTRESS NOTED. WILL CONTINUE TO MONITOR.
[2022-01-13 16:00] VITALS: BP 114/48
--- NOTE | 2022-01-13 17:40 | NUR ---
PT REFUSED SCHEDULED MEDICATIONS. NOTIFIED MD AND IS AWARE
[2022-01-13] MEDS: SIMVASTATIN 20 MG TAB PO SCH (21:15)
--- NOTE | 2022-01-13 21:21 | NUR ---
ROUNDS , TALKING OVER THE PHONE , NO COMPLAIN MADE . CALL LIGHT WITHIN REACH.
[2022-01-14] VITALS: BP 112/59
--- NOTE | 2022-01-14 | NUR ---
ROUNDS , NO COMPLAIN MADE ,CALL LIGHT WITHIN REACH .
--- NOTE | 2022-01-14 04:00 | NUR ---
ROUNDS , NO COMPLAIN MADE .
--- NOTE | 2022-01-14 06:00 | NUR ---
ROUNDS , NO COMPLAIN MADE , CALL LIGHT WITHIN REACH .
--- NOTE | 2022-01-14 07:34 | NUR ---
ENDORSED - PT - STABLE .
[2022-01-14 08:00] VITALS: BP 161/57
--- NOTE | 2022-01-14 08:06 | NUR ---
RECEIVED ENDORSEMENT FROM PM SHIFT NURSE. PT REST IN BED W/ NO ACUTE RESPIRATORY DISTRESS NOTED. PIV AT L.HAND PATENT, NEGATIVE PRESSURE PROTOCOL IN PLACE. PT IS ABLE TO MAKE NEEDS KNOW. WILL CONTINUE TO MONITOR
[2022-01-14] MEDS: ISONIAZID 100 MG TAB PO SCH (09:36)
[2022-01-14] MEDS: BENZONATATE 100 MG CAPLF PO SCH ×3 (09:36→16:21)
[2022-01-14] MEDS: lisinopriL 20 MG TAB PO SCH (09:38)
[2022-01-14] MEDS: FAMOTIDINE 20 MG TAB PO SCH (09:39)
[2022-01-14] MEDS: PYRIDOXINE 50 MG TAB PO SCH (09:40)
[2022-01-14] MEDS: guaiFENesin 600 MG TABER PO SCH ×2 (09:41→21:00)
[2022-01-14] MEDS: ETHAMBUTOL 400 MG TAB PO SCH (09:42)
[2022-01-14] MEDS: rifAMPin 300 MG CAP PO SCH (09:43)
[2022-01-14] MEDS: PYRAZINAMIDE 500 MG TAB PO SCH (09:44)
--- NOTE | 2022-01-14 11:51 | NUR ---
ALL SCHEDULED AM MEDS GIVEN. PT TOLERATE WELL. NO ACUTE RESPIRATORY DISTRESS NOTED AT TIME. WILL CONTINUE TO MONITOR.
[2022-01-14 16:00] VITALS: BP 143/59
--- NOTE | 2022-01-14 17:48 | NUR ---
PT SITTING AT EDGE OF BED W/ NO ACUTE DISTRESS. COUGH MEDICATION TAKEN BECAUSE PT HAS INTERMITTED COUGH. STABLE AT THIS TIME
--- NOTE | 2022-01-14 19:10 | NUR ---
ENDORSE PT TO PM SHIFT NURSE. PT REST IN BED W/ NO ACUTE RESPIRATORY DISTRESS NOTED. PIV AT L.HAND PATENT, AIR BORN ISOLATION IN PLACE. PT IS ABLE TO MAKE NEEDS KNOW.
[2022-01-14] MEDS: SIMVASTATIN 20 MG TAB PO SCH (21:00)
--- NOTE | 2022-01-14 23:21 | NUR ---
IV OUT - REFUSED IV RE INSERTION - INFORMED DR. MARTINEZ - DR. MARTINEZ RESPONDED "OK "
[2022-01-15] VITALS: BP 112/60
--- NOTE | 2022-01-15 04:00 | NUR ---
ROUNDS , NO COMPLAIN MADE . CALL LIGHT WITHIN REACH .
--- NOTE | 2022-01-15 06:00 | NUR ---
ROUNDS , CALL LIGHT WITHIN REACH . NO COMPLAIN MADE .
--- NOTE | 2022-01-15 07:23 | NUR ---
ENDORSED - PT - STABLE . AWAKE .
--- NOTE | 2022-01-15 07:23 | NUR ---
RECEIVED REPORT FROM ACCOUNTS PAYABLE COORDINATOR NURSE FOR CONTINUITY OF CARE. PT ASLEEP IN BED. BREATHING SYMMETRICAL. ON AIRBORNE PRECAUTIONS. NO IV LINE NOTED. FLACC O. CALL LIGHT WITHIN REACH. ALL SAFETY MEASURES IN PLACE.
[2022-01-15 08:00] VITALS: BP 157/63
[2022-01-15] MEDS: guaiFENesin 600 MG TABER PO SCH ×2 (09:52→20:16)
[2022-01-15] MEDS: ISONIAZID 100 MG TAB PO SCH (09:52)
[2022-01-15] MEDS: BENZONATATE 100 MG CAPLF PO SCH ×3 (09:53→17:10)
[2022-01-15] MEDS: PYRAZINAMIDE 500 MG TAB PO SCH (09:53)
[2022-01-15] MEDS: rifAMPin 300 MG CAP PO SCH (09:53)
[2022-01-15] MEDS: lisinopriL 20 MG TAB PO SCH (09:53)
[2022-01-15] MEDS: ETHAMBUTOL 400 MG TAB PO SCH (09:53)
[2022-01-15] MEDS: FAMOTIDINE 20 MG TAB PO SCH (09:53)
[2022-01-15] MEDS: PYRIDOXINE 50 MG TAB PO SCH (09:53)
--- NOTE | 2022-01-15 11:29 | NUR ---
PT ASLEEP IN BED. BREATHING SYMMETRICAL, NO COUGHING EPISODE NOTED. FLACC O. FREQUENT ROUNDS DONE. CALL LIGHT WITHIN REACH. ALL SAFETY MEASURES IN PLACE.
--- NOTE | 2022-01-15 15:40 | NUR ---
NO COUGHING NOTED DURING THIS SHIFT SO FAR, PT ALSO DENIES ANY COUGHING EPISODES. PT IN BED, AWAKE. BREATHING SYMMETRICAL ON ROOM AIR. PT MADE AWARE [employer] STILL PENDING. CALL LIGHT WITHIN REACH. ENCOURAGED TO ALWAYS CALL FOR ASSISTANCE. AIRBORNE PRECAUTIONS IN PLACE.
[2022-01-15 16:00] VITALS: BP 156/61
--- NOTE | 2022-01-15 19:19 | NUR ---
ENDORSED PT TO ARTIST MANNEQUIN COLORING NURSE. PT IN STABLE CONDITION
--- NOTE | 2022-01-15 19:20 | NUR ---
RECEIVED REPORT FROM MORNING NURSE. PATIENT RESTING ON BED. NO COMPLAINTS AT THIS TIME, EAGER TO GO HOME. UPDATED ON PLAN OF CARE, MEDICATIONS AND PENDING LABS. PATIENT VERBALIZED UNDERSTANDING. WILL CONTINUE TO MONITOR AND ASSESS PATIENT.
[2022-01-15] MEDS: SIMVASTATIN 20 MG TAB PO SCH (20:17)
--- NOTE | 2022-01-15 22:04 | NUR ---
ROUNDING WITH A PURPOSE DONE. PATIENT RESTING ON BED. NOT IN DISTRESS. BREATHING EVEN AND UNLABORED. WILL CONTINUE TO MONITOR AND ASSESS.
[2022-01-16] VITALS: BP 104/52
--- NOTE | 2022-01-16 00:20 | NUR ---
PATIENT ASLEEP. NO SIGNS OF DISTRESS. CALL LIGHT WITHIN REACH. WILL CONTINUE TO MONITOR PATIENT.
--- NOTE | 2022-01-16 07:18 | NUR ---
REPORT GIVEN TO MORNING SHIFT NURSE FOR CONTINUITY OF CARE. PATIENT RESTING ON BED, STABLE AT THIS TIME.
--- NOTE | 2022-01-16 07:20 | NUR ---
RECEIVED REPORT FROM LUMBER SCALER NURSE FOR CONTINUITY OF CARE. PT AWAKE LYING IN BED. BREATHING SYMMETRICAL. DENIES PAIN. NO IV LINE. CALL LIGHT WITHIN REACH. ALL SAFETY MEASURES IN PLACE.
[2022-01-16 08:00] VITALS: BP 153/67
[2022-01-16] MEDS: lisinopriL 20 MG TAB PO SCH (09:00)
[2022-01-16] MEDS: BENZONATATE 100 MG CAPLF PO SCH ×3 (09:00→17:00)
[2022-01-16] MEDS: FAMOTIDINE 20 MG TAB PO SCH (09:00)
[2022-01-16] MEDS: ETHAMBUTOL 400 MG TAB PO SCH (09:00)
[2022-01-16] MEDS: ISONIAZID 100 MG TAB PO SCH (09:00)
[2022-01-16] MEDS: rifAMPin 300 MG CAP PO SCH (09:00)
[2022-01-16] MEDS: PYRAZINAMIDE 500 MG TAB PO SCH (09:00)
[2022-01-16] MEDS: PYRIDOXINE 50 MG TAB PO SCH (09:00)
[2022-01-16] MEDS: guaiFENesin 600 MG TABER PO SCH ×2 (09:00→20:37)
--- NOTE | 2022-01-16 10:00 | NUR ---
PT AWAKE IN BED, BREATHING SYMMETRICAL. MADE AWARE [employer] STILL PENDING. DENIES PAIN AT THIS TIME. CALL LIGHT WITHIN REACH.
[2022-01-16 10:21] LABS: ALBUMIN 3.3 g/dL (3.4-5.0); BILIRUBIN,DIRECT 0.1 mg/dL (0.0-0.3); TOTAL BILIRUBIN 0.3 mg/dL (0.0-1.0)
--- NOTE | 2022-01-16 12:50 | NUR ---
PUBLIC HEALTH HAS CLEARED PT FOR DISCHARGE, LEFT MESSAGE TO DR DUARTE, HUMAN RESOURCES EXECUTIVE FOR DR MANCIA, AWAITING RESPONSE.
[2022-01-16] MEDS ORDERED: RIFA300C6 PO (14:17)
[2022-01-16] MEDS ORDERED: MYA400 PO (14:17)
[2022-01-16] MEDS ORDERED: ISO100 PO (14:17)
[2022-01-16] MEDS ORDERED: PYRI50TA33 PO (14:17)
[2022-01-16] MEDS ORDERED: PZA500 PO (14:17)
[2022-01-16 14:26] VITALS: BP 153/67
--- NOTE | 2022-01-16 14:30 | NUR ---
PT HAS DISCHARGE ORDER, PT MADE AWARE, DAUGHTER LADY ALSO MADE AWARE.
--- NOTE | 2022-01-16 15:30 | NUR ---
RECEIVED CALL FROM DAUGHTER LADY, [facility] DIDN'T RECEIVE PRESCRIPTION ORDER. DR DUARTE MADE AWARE.
[2022-01-16 16:00] VITALS: BP 143/73
--- NOTE | 2022-01-16 18:19 | NUR ---
FOLLOW UP CALL MADE TO [facility] SPOKE WITH PHARMACIST KELLI, STATED SHE GOT VERBAL ORDER FROM DR HERNANDEZ BUT HASN'T INPUTTED ORDERS YET THEY'RE BACKLOGGED. ASKED KELLI WHAT TIME IS THE BEST TIME TO THREAD SPOOLER PRESCRIPTION STATED AT 8PM. DAUGHTER LADY AND PT MADE AWARE.
--- NOTE | 2022-01-16 19:03 | NUR ---
ENDORSED PT TO HADOOP CONSULTANT NURSE. ALSO MADE AWARE OF PENDING PRESCRIPTION MEDICATION CURB MACHINE OPERATOR FROM [facility] BY DAUGHTER LADY. PT IN STABLE CONDITION
--- NOTE | 2022-01-16 20:05 | NUR ---
RECEIVED REPORT FROM MORNING NURSE. CALLED UP [facility] AND FOLLOWED UP PRESCRIPTION FOR PATIENT. CALLED DAUGHTER AND UPDATED HER THAT MEDS ARE READY FOR HEALTH SAFETY COORDINATOR THEN SHE CAN HEALTH SAFETY COORDINATOR PATIENT FOR DISCHARGE.PATIENT RESTING ON BED, BREATHING EVEN AND UNLABORED. NO SIGNS OF DISTRESS. WILL CONTINUE TO MONITOR PATIENT.
[2022-01-16] MEDS: SIMVASTATIN 20 MG TAB PO SCH (20:36)
--- NOTE | 2022-01-16 20:56 | NUR ---
ALL DUE MEDS GIVEN. ALL DISCHARGE INSTRUCTION GIVEN AND VERBALIZE UNDERSTANDING. PATIENT VS STABLE. PATIENT WHEELED SAFELY, DISCHARGED PER PRIVATE CAR TO HOME, ACCOMPANIED BY DAUGHTER.
--- NOTE | 2022-01-17 15:40 | NUR ---
DC PLANNING: SW ATTEMPTED TO TALK TO PATIENT'S DAUGHTER LADY HART AT TO DISCUSS AND PLAN FOR PATIENT'S RECOMMENDED FOLLOW UP APPOINTMENTS AFTER HER DC [facility]. PATIENT'S DAUGHTER DID NOT RESPOND THE CALL AND SW LEFT HER A VOICE MAIL MSG WITH DIRECT CONTACT INF. AND REQUEST FOR A CALL BACK. SW WILL FOLLOW UP NEEDED. Addendum: 01/17/22 at 0194 by Whitley Luther SS SW CALL PATIENT'S PCP OFFICE AT TO MAKE A FOLLOW UP APPOINTMENT. EMI SPOKE TO JOANNA WHO SCHEDULED APPOINTMENT FOR Saturday01/22/2022 AT 3:30PM AT [id number] [facility] [employer] [facility] IN [place] [id number]. SW THANK HER FOR THE INFORMATION AND ENDED THE CALL. SW CALL PATIENT'S DAUGHTER LADY ORDOÑEZ AT TO INFORM HER OF PATIENT'S SCHEDULED APPOINTMENT. EMI PROVIDED HER WITH APPOINTMENT TIME, ADDRESS, AND DATE WITH DR. WILLIAM SEGAL. WAS THANKFUL AND AGREED TO TAKE PATIENT TO FOLLOW UP APPOINTMENT THEN ENDED AMANUEL CALL.
== END 2022-01-16 20:55 | disposition home or self-care (01) | DRG 137 ==
LOC: MED 20:35 → MTU 12-23 02:01
PROVIDERS: ADMIT Internal Medicine; ATTEND Internal Medicine
DX: A15.0 Tuberculosis of lung (principal); E44.0 Moderate protein-calorie malnutrition; R91.8 Other nonspecific abnormal finding of lung field; E04.1 Nontoxic single thyroid nodule; I10 Essential (primary) hypertension; J40 Bronchitis, not specified as acute or chronic; I25.10 Atherosclerotic heart disease of native coronary artery without angina pectoris; M19.90 Unspecified osteoarthritis, unspecified site; Z20.822 Contact with and (suspected) exposure to COVID-19; Z86.11 Personal history of tuberculosis; Z68.25 Body mass index [BMI] 25.0-25.9, adult; Z85.9 Personal history of malignant neoplasm, unspecified
CPT/HCPCS: 36415; 71045; 71250; 80048; 80053; 80076; 83605; 83735; 84100; 85025; 87040; 87070; 87081; 87116; 87190; 87205; 87206; 89220; 94640; 96361; 96365; 96375; 99291; J2543; J2930; J3490; J7060; Q0092

== ENCOUNTER 2022-05-03 19:06 | Observation (INO) | payer MEDICARE, OTHER ==
[~2022-05-03] VITALS: Ht 149.9 cm; Wt 63.5 kg
[~2022-05-03 19:06] MED LIST changes: +ISO100 PO; -LEVO-315 PO; +MYA400 PO; +PYRI50TA33 PO; +PZA500 PO; +RIFA300C49 PO; -levaquin
[2022-05-03 19:13] VITALS: BP 204/93
--- NOTE | 2022-05-03 19:21 | NUR ---
PT W/C ASSISTED TO BED 05.
--- NOTE | 2022-05-03 19:49 | NUR ---
flu/ covid swabs given to lab animal technologist
--- NOTE | 2022-05-03 20:06 | NUR ---
Note undone in EDM - 05/03/22 at 2026 by DARREN 86 YO F BIB DAUGHTER FOR HTN. PT HAS HAD ERRATIC BP FOR A COUPLE DAYS. PT HAS BEEN TAKING HER MEDS BUT MP HAS NOT BEEN STABLE. A/0 X4. PT RECEBNTLY DX WITH DB. PT HAS FELT INCREASINGLY WEAK. PT IS AMBULATORY WITH HELP, INCONTINENT BUT SHE CAN AMBULATE TO . PT ALSO STATES DIZZINESS AND NUMBNESS BILAT LEGS. PT DENIES N/F/V/D/CHEST PAIN/ COUGH PMH: HTN , DB, RX: LISINOIPRIL , SIMVASTATIN, ISONAZID, CATAPRES, RIFADIN, BABY ASPIRIN. VIT B6, MECLOZINE DAUGHTER AT BED SIDE
[2022-05-03 20:10] LABS: BASOPHILS % (AUTO) 0.8 % (0.0-2.0); EOSINOPHILS # (AUTO) 0.3 K/uL (0-0.4); EOSINOPHILS % (AUTO) 5.4 % (0.0-4.0); HEMATOCRIT 35.7 % (36-48); HEMOGLOBIN 11.6 g/dL (12.0-16.0); LYMPHOCYTES # (AUTO) 1.6 K/uL (2.5-16.5); LYMPHOCYTES % (AUTO) 29.1 % (20.5-51.1); MEAN CORPUSCULAR HEMOGLOBIN 29 pg (27-31); MEAN CORPUSCULAR HGB CONC 32 g/dL (33-37); MEAN CORPUSCULAR VOLUME 88.2 fL (80-94); MONOCYTES # (AUTO) 0.4 K/uL (0.8-1.0); MONOCYTES % (AUTO) 7.8 % (1.7-9.3); NEUTROPHILS # (AUTO) 3.2 K/uL (1.8-7.7); NEUTROPHILS % (AUTO) 56.9 % (42.2-75.2); PLATELET COUNT (AUTO) 232 K/uL (140-450); RED BLOOD CELL COUNT(AUTO) 4.04 MIL/uL (4.20-5.40); RED CELL DISTRIBUTION WIDTH 15.4 % (11.6-13.7); WHITE BLOOD COUNT (AUTO) 5.6 K/uL (4.8-10.8)
[2022-05-03 20:23] LABS: ALBUMIN 3.8 g/dL (3.4-5.0); ANION GAP 12.6 (8-16); ASPARTATE AMINOTRANSFERASE 21 U/L (15-37); CARBON DIOXIDE 28.7 mmol/L (21-32); CHLORIDE 94 mmol/L (98-107); GLUCOSE 134 mg/dL (74-106); POTASSIUM 4.3 mmol/L (3.5-5.1); SODIUM SERUM 131 mmol/L (136-145); TOTAL BILIRUBIN 0.4 mg/dL (0.0-1.0); UREA NITROGEN, BLOOD 12 mg/dL (7-18)
--- NOTE | 2022-05-03 20:27 | NUR ---
86 YO F BIB DAUGHTER FOR HTN. PT HAS HAD ERRATIC BP FOR A COUPLE DAYS. PT HAS BEEN TAKING HER MEDS BUT MP HAS NOT BEEN STABLE. A/0 X4. PT RECEBNTLY DX WITH DB. PT HAS FELT INCREASINGLY WEAK. PT IS AMBULATORY WITH HELP, INCONTINENT BUT SHE CAN AMBULATE TO . PT ALSO STATES DIZZINESS AND NUMBNESS BILAT LEGS. PT DENIES N/F/V/D/CHEST PAIN/ COUGH PMH: HTN , TB, RX: LISINOIPRIL , SIMVASTATIN, ISONAZID, CATAPRES, RIFADIN, BABY ASPIRIN. VIT B6, MECLOZINE DAUGHTER AT BED SIDE
--- NOTE | 2022-05-03 21:17 | NUR ---
MORENA MCCORMICK AT BEDSIDE
[2022-05-03] MEDS ORDERED: NACL 0.9% 1,000 ML IV ONE (21:25)
[2022-05-03 21:30] LABS: APPEARANCE,URINE HAZY (CLEAR); BILIRUBIN,URINE NEGATIVE (NEGATIVE); BLOOD, URINE NEGATIVE (NEGATIVE); COLOR,URINE YELLOW (YELLOW); LEUKOCYTE ESTERASE ,URINE 2+ (NEGATIVE); NITRITE, URINE NEGATIVE (NEGATIVE); UGLUCOSE NEGATIVE (NEGATIVE)
[2022-05-03] MEDS ORDERED: cefTRIAXone 1,000 MG VIAL ONE (21:44)
[2022-05-03] MEDS ORDERED: MORPHINE SULFATE 4 MG/ML SYR IVP PRN (21:45)
[2022-05-03] MEDS ORDERED: ONDANSETRON 4 MG/2 ML VIAL IVP PRN (21:45)
[2022-05-03] MEDS ORDERED: ACETAMINOPHEN 325 MG TAB PO PRN (21:45)
[2022-05-03] MEDS ORDERED: HYDROcodone/APAP 5/325 MG 1 TAB TAB PO PRN (21:45)
[2022-05-03 21:46] LABS: OTHER CASTS, URINE None Seen /LPF (None Seen); RBC,URINE 0-5 /HPF (0-5)
--- NOTE | 2022-05-03 23:00 | NUR ---
pt ambulated to bathroom with assistance. new brief provided
[2022-05-04] MEDS: NACL 0.9% 1,000 ML IV SCH ×3 (00:05→22:45)
--- NOTE | 2022-05-04 01:20 | NUR ---
PT AMBULATE TO BATHROOM
--- NOTE | 2022-05-04 04:00 | NUR ---
Patient appears to be resting comfortably in bed. Vital Signs within normal limits. Respirations even and unlabored.
--- NOTE | 2022-05-04 06:00 | NUR ---
PT AMBULATE TO BATHROOM
--- NOTE | 2022-05-04 06:01 | NUR ---
Joe arias in ED - 05/04/22 at 0602 by [email or web address] PT AMBULATE TO TBATHRROM . NEW BRIEF PROVIDED
--- NOTE | 2022-05-04 06:49 | NUR ---
ASSITED PT TO RESTROOM
--- NOTE | 2022-05-04 07:17 | NUR ---
Pt report given to KERRIE. Transfer of care at this time.
--- NOTE | 2022-05-04 07:18 | NUR ---
REPORT RECEIVED FROM JUDE MONZON. ASSUMED CARE AT THIS TIME
[2022-05-04 07:27] LABS: BASOPHILS % (AUTO) 0.6 % (0.0-2.0); EOSINOPHILS # (AUTO) 0.5 K/uL (0-0.4); EOSINOPHILS % (AUTO) 9.8 % (0.0-4.0); HEMATOCRIT 34.1 % (36-48); LYMPHOCYTES # (AUTO) 1.4 K/uL (2.5-16.5); LYMPHOCYTES % (AUTO) 26.6 % (20.5-51.1); MEAN CORPUSCULAR HEMOGLOBIN 29 pg (27-31); MEAN CORPUSCULAR HGB CONC 32 g/dL (33-37); MEAN CORPUSCULAR VOLUME 88.1 fL (80-94); MONOCYTES # (AUTO) 0.6 K/uL (0.8-1.0); MONOCYTES % (AUTO) 11.6 % (1.7-9.3); NEUTROPHILS # (AUTO) 2.7 K/uL (1.8-7.7); NEUTROPHILS % (AUTO) 51.4 % (42.2-75.2); PLATELET COUNT (AUTO) 228 K/uL (140-450); RED BLOOD CELL COUNT(AUTO) 3.87 MIL/uL (4.20-5.40); RED CELL DISTRIBUTION WIDTH 15.6 % (11.6-13.7); WHITE BLOOD COUNT (AUTO) 5.3 K/uL (4.8-10.8)
[2022-05-04 07:46] LABS: ANION GAP 12.4 (8-16); CARBON DIOXIDE 27.8 mmol/L (21-32); CHLORIDE 102 mmol/L (98-107); CREATININE 0.8 mg/dL (0.6-1.3); GLUCOSE 125 mg/dL (74-106); POTASSIUM 4.2 mmol/L (3.5-5.1); SODIUM SERUM 138 mmol/L (136-145); UREA NITROGEN, BLOOD 9 mg/dL (7-18)
[2022-05-04] MEDS: DOCUSATE SODIUM 100 MG GELCAP PO SCH (09:37)
--- NOTE | 2022-05-04 11:00 | NUR ---
MD MARTINEZ MADE AWARE OF PT BP STATUS
--- NOTE | 2022-05-04 11:06 | NUR ---
VERBAL ORDER RECEIVED FROM MD MARTINEZ AND INPUTED FOR HYDRALAZINE 25MG PO [id number]
[2022-05-04] MEDS ORDERED: hydrALAZINE 10 MG TAB ONE ×2 (11:20→15:58)
[2022-05-04] MEDS ORDERED: CRUSHER, PILL MC ONE (11:20)
[2022-05-04] MEDS: hydrALAZINE 25 MG TAB PO PRN ×3 (11:22→20:38)
--- NOTE | 2022-05-04 12:45 | NUR ---
PT PROVIDED WITH LUNCH. PT AWAKE , SITTING UP AND EATING IN BED
--- NOTE | 2022-05-04 14:33 | NUR ---
PATIENT HAS BEEN SCREENED AND CATEGORIZED LOW NUTRITION RISK. PATIENT WILL BE SEEN WITHIN 7 DAYS OF ADMISSION. 05/10/[address]
--- NOTE | 2022-05-04 16:24 | NUR ---
DC PLANNING: CM SPOKE WITH THE PATIENTS DAUGHTER LADAshlee BY PHONE AND CONFIRMED THE PATIENTS PHONE AND ADDRESS. SHE LIVES IN A 2 STORY HOUSE WITH HER DAUGHTER, SON IN LAW AND 2 GRANDCHILDREN. SHE AMBULATES IN THE HOUSE AND IS INDEPENDENT WITH ADL'S AND EATING. SHE HAS DME OF A [facility] AND [facility] [facility] AND HAS CONTINUED ON TB MEDS SINCE HER DC FROM THE HOSPITAL. SHE SEES HER PMD DR WILLIAM REYNOLDS REGULARLY AND LAST SAW HIM A MONTH AND A HALF AGO. SHE IS ALSO FOLLOW BY HER RISK ADVISOR DR NOBLE. HO H/O HOME HEALTH. PATIENT ADMITTED WITH C/O WEAKNESS AND UTI, UC'S IN PROCESS. ON ROCEPHIN IV. CM WILL FOLLOW.
--- NOTE | 2022-05-04 16:27 | NUR ---
PT CANISTER EMPTIED. 800ML, YELLOW AND CLEAR
[2022-05-04] MEDS: NIFEdipine 30 MG TABER PO SCH (16:58)
--- NOTE | 2022-05-04 17:40 | NUR ---
Patient will be admitted to care of [facility]. [facility]. Will go to room 107B. Belongings list completed. Report to
[2022-05-04 17:49] VITALS: BP 187/72
--- NOTE | 2022-05-04 18:10 | NUR ---
RECEIVED PT VIA GURNEY FROM ER AT 1749. BEDSIDE REPORT GIVEN BY KERRIE. PT ALERT, AWAKE, ABLE TO MAKE NEEDS KNOWN. AMBULATORY USING CANE WITH 1 PERSON ASSIST. BREATHING SYMMETRICAL ON ROOM AIR. DENIES DIZZINESS AT THIS TIME. WITH LAC 20G NS AT 80CC/HR. NO C/O PAIN AT THIS TIME. [id number] PR92 RR18 TEMP98.0 O2 SAT ON ROOM AIR 97% PT RECEIVED ADALAT AND HYDRALAZINE AT ER. DR MARTINEZ MADE AWARE OF PT'S ELEVATED BP, NO NEW ORDERS MADE. MAY GIVEN PRN HYDRALAZINE Q4HRS. CALL LIGHT WITHIN REACH. ALL SAFETY MEASURES IN PLACE.
--- NOTE | 2022-05-04 18:55 | NUR ---
PT'S MAGNESIUM IS 1.6, NO PRN ORDER AT THIS TIME. LEFT MESSAGE TO DR MARTINEZ
[2022-05-04] MEDS ORDERED: MAG SULF 2000 MG/WATER PREMIX 50 ML IV ONE (19:10)
--- NOTE | 2022-05-04 19:19 | NUR ---
ENDORSED PT TO PERFORMANCE ENGINEER NURSE FOR CONTINUITY OF CARE.
--- NOTE | 2022-05-04 19:20 | NUR ---
REPORT GIVEN BY DAY SHIFT RN. PATIENT IS AWAKE, ALERT, ORIENTED X4. ON ROOM AIR. NO SOB NOTED. BREATHING REGULAR UNLABORED. IVF NS INFUSING AT 80 ML/HR ON THE LEFT AC. ALL SAFETY PRECAUTIONS ARE IN PLACE. BED IN LOW POSITION WHEELS LOCKED. PUREWICK IN PLACE. CALL LIGHT WITHIN REACH. COMPLAINED OF HEADACHE, WILL MEDICATE. WILL CONTINUE TO MONITOR.
[2022-05-04 20:00] VITALS: BP 157/56
--- NOTE | 2022-05-04 20:37 | NUR ---
DUE MEDICATION GIVEN PER MD ORDER.
--- NOTE | 2022-05-04 20:38 | NUR ---
BP-164/77 P-72 ANTIHYPERTENSIVE MEDICATION GIVEN ORDERED BY MD. NO SOB NOTED.
[2022-05-04] MEDS ORDERED: cefTRIAXone 1,000 MG VIAL ONE (22:50)
--- NOTE | 2022-05-04 22:52 | NUR ---
ROCEPHIN ADMINISTERED ORDERED.
[2022-05-05 00:49] VITALS: BP 157/56
[2022-05-05] MEDS: NACL 0.9% 1,000 ML IV SCH ×3 (03:44→23:57)
--- NOTE | 2022-05-05 03:44 | NUR ---
PATIENT SLEEPING. BREATHING NORMAL. SYMMETRICAL RISE AND FALL OF CHEST. CALL LIGHT IN REACH.
[2022-05-05 05:40] LABS: BASOPHILS % (AUTO) 0.7 % (0.0-2.0); EOSINOPHILS # (AUTO) 0.5 K/uL (0-0.4); EOSINOPHILS % (AUTO) 8.7 % (0.0-4.0); HEMATOCRIT 33.5 % (36-48); HEMOGLOBIN 10.9 g/dL (12.0-16.0); LYMPHOCYTES # (AUTO) 2.2 K/uL (2.5-16.5); LYMPHOCYTES % (AUTO) 36.1 % (20.5-51.1); MEAN CORPUSCULAR HEMOGLOBIN 29 pg (27-31); MEAN CORPUSCULAR HGB CONC 33 g/dL (33-37); MEAN CORPUSCULAR VOLUME 88.2 fL (80-94); MONOCYTES # (AUTO) 0.6 K/uL (0.8-1.0); MONOCYTES % (AUTO) 10.4 % (1.7-9.3); NEUTROPHILS # (AUTO) 2.7 K/uL (1.8-7.7); NEUTROPHILS % (AUTO) 44.1 % (42.2-75.2); PLATELET COUNT (AUTO) 233 K/uL (140-450); RED CELL DISTRIBUTION WIDTH 15.2 % (11.6-13.7)
[2022-05-05 06:04] LABS: ANION GAP 12.4 (8-16); CHLORIDE 101 mmol/L (98-107); CREATININE 0.7 mg/dL (0.6-1.3); GLUCOSE 110 mg/dL (74-106); POTASSIUM 3.4 mmol/L (3.5-5.1); SODIUM SERUM 136 mmol/L (136-145); UREA NITROGEN, BLOOD 7 mg/dL (7-18)
--- NOTE | 2022-05-05 07:08 | NUR ---
RECEIVED REPORT FROM QUALITY ANALYST/TECHNICAL WRITER NURSE FOR CONTINUITY OF CARE. PT ASLEEP IN BED. BREATHING SYMMETRICAL ON ROOM AIR. FLACC OMary Jo GUAN ON. LAC 20G WITH NS AT 80CC/HR. CALL LIGHT WITHIN REACH. ALL SAFETY MEASURES IN PLACE.
--- NOTE | 2022-05-05 07:08 | NUR ---
ENDORSED TO DAY SHIFT NURSE FOR CONTINUITY OF CARE. PT SLEEPING IN NO ACUTE DISTRESS.
[2022-05-05 08:00] VITALS: BP 173/66
[2022-05-05] MEDS: hydrALAZINE 25 MG TAB PO PRN (08:37)
[2022-05-05] MEDS: NIFEdipine 30 MG TABER PO SCH (08:37)
[2022-05-05] MEDS: DOCUSATE SODIUM 100 MG GELCAP PO SCH (08:47)
--- NOTE | 2022-05-05 08:47 | NUR ---
SCHEDULED AM MEDICATIONS GIVEN ORDERED. PRN HYDRALAZINE GIVEN FOR ELEVATED BP
[2022-05-05 09:45] VITALS: BP 130/50
--- NOTE | 2022-05-05 10:37 | NUR ---
PT'S K LEVEL IS 3.4, NO PRN ORDER AT THIS TIME. DR MARTINEZ DOING ROUNDS MADE AWARE, WITH ORDER TO GIVE KDUR 40MEQ
[2022-05-05] MEDS ORDERED: POTASSIUM CHLORIDE 10 MEQ TABER PO SCH (10:43)
--- NOTE | 2022-05-05 13:08 | NUR ---
PT C/O DIZZINESS. PT'S BP RIGHT NOW IS 112/45. DR MARTINEZ MADE AWARE WITH NEW ORDER FOR MECLIZINE 25MG TID PRN
[2022-05-05] MEDS: MECLIZINE 25 MG TAB PO PRN (13:17)
--- NOTE | 2022-05-05 15:51 | NUR ---
PT'S DAUGHTER AT BEDSIDE. PT VERBALIZED FEELING BETTER, LESS DIZZY. CALL LIGHT WITHIN REACH. ENCOURAGED TO ALWAYS CALL FOR ASSISTANCE
[2022-05-05 16:00] VITALS: BP 113/51
--- NOTE | 2022-05-05 17:18 | NUR ---
ASSISTED PT TO THE RESTROOM, AMBULATES USING CANE AND WITH 1 PERSON ASSIST. PT HAD BOWEL MOVEMENT. ENCOURAGED PT TO ALWAYS CALL FOR ASSISTANCE FOR SAFETY.
--- NOTE | 2022-05-05 19:20 | NUR ---
ENDORSED PT TO ROUTE DELIVERY SERVICE DRIVER NURSE FOR CONTINUITY OF CARE.
--- NOTE | 2022-05-05 19:51 | NUR ---
GET THE REPORT FROM MORNING NURSE JOSELINE SIMMS, PATIENT IS SITTING ON BED, PATIENT IS ALERT ORIENTED X4, CALL LIGHT IS WITHIN THE REACH, WILL CONTINUE TO MONITOR PATIENT.
[2022-05-05 20:00] VITALS: BP 150/57
--- NOTE | 2022-05-05 20:17 | NUR ---
PATIENT IS LYING ON BED, NO ANY COMPLAIN OF PAIN OR SHORTNESS OF BREATH AT THIS TIME, VITAL SIGN IS WITHIN THE NORMAL RANGE, CALL LIGHT IS WITHIN THE REACH, WILL CONTINUE TO MONITOR PATIENT.
--- NOTE | 2022-05-06 00:23 | NUR ---
PATIENT IS LYING ON BED, NO ANY COMPLAIN OF PAIN OR SHORTNESS OF BREATH AT THIS TIME.CALL LIGHT IS WITHIN THE REACH, WILL CONTINUE TO MONITOR PATIENT.
[2022-05-06] MEDS: hydrALAZINE 25 MG TAB PO PRN (03:48)
--- NOTE | 2022-05-06 03:49 | NUR ---
PATIENT BLOOD PRESSURE IS 173/72 , HR : 89, GAVE HYDRALAZINE 25 MG PO PRN PER DOCTOR ORDER, WILL REASSESS BLOOD PRESSURE IN HOUR, CALL LIGHT IS WITHIN THE REACH, WILL CONTINUE TO MONITOR PATIENT.
[2022-05-06 04:00] VITALS: BP 173/72
--- NOTE | 2022-05-06 04:08 | NUR ---
PATIENT IS LYING ON BED, NO ANY COMPLAIN OF PAIN OR SHORTNESS OF BREATH AT THIS TIME , CALL LIGHT IS WITHIN THE REACH, WILL CONTINUE TO MONITOR PATIENT.
--- NOTE | 2022-05-06 07:30 | NUR ---
RECEIVED REPORT FROM NIGHTSHIFT NURSE CHARLIE FOR CONTINUITY OF CARE. PT IS CURRENTLY SLEEPING, EASILY AROUSED, A/OX4. BREATHING IS EVEN, REGULAR AND UNLABORED ON ROOM AIR. PT IS CONTINENT OF THE BOWELS, PUBIC CATHETER PATENT AND HANGING BY GRAVITY. SKIN IS INTACT, NO SIGNS OF PAIN OR DISTRESS NOTED AT THIS TIME.
--- NOTE | 2022-05-06 07:30 | NUR ---
GAVE THE REPORT TO MORNING NURSE FOR CONTINUOS OF CARE , PATIENT IS STABLE.
[2022-05-06 07:58] LABS: BASOPHILS % (AUTO) 0.7 % (0.0-2.0); EOSINOPHILS # (AUTO) 0.4 K/uL (0-0.4); HEMATOCRIT 34.3 % (36-48); HEMOGLOBIN 11.3 g/dL (12.0-16.0); LYMPHOCYTES # (AUTO) 1.6 K/uL (2.5-16.5); LYMPHOCYTES % (AUTO) 28.3 % (20.5-51.1); MEAN CORPUSCULAR HEMOGLOBIN 29 pg (27-31); MEAN CORPUSCULAR HGB CONC 33 g/dL (33-37); MEAN CORPUSCULAR VOLUME 87.5 fL (80-94); MONOCYTES # (AUTO) 0.6 K/uL (0.8-1.0); NEUTROPHILS # (AUTO) 2.9 K/uL (1.8-7.7); PLATELET COUNT (AUTO) 232 K/uL (140-450); RED BLOOD CELL COUNT(AUTO) 3.92 MIL/uL (4.20-5.40); RED CELL DISTRIBUTION WIDTH 15.4 % (11.6-13.7); WHITE BLOOD COUNT (AUTO) 5.6 K/uL (4.8-10.8)
[2022-05-06 08:00] VITALS: BP 154/75
[2022-05-06 08:11] LABS: ANION GAP 14.4 (8-16); CARBON DIOXIDE 23.4 mmol/L (21-32); CHLORIDE 102 mmol/L (98-107); CREATININE 0.6 mg/dL (0.6-1.3); GLUCOSE 114 mg/dL (74-106); POTASSIUM 3.8 mmol/L (3.5-5.1); SODIUM SERUM 136 mmol/L (136-145); UREA NITROGEN, BLOOD 5 mg/dL (7-18)
[2022-05-06] MEDS: MECLIZINE 25 MG TAB PO PRN (09:43)
[2022-05-06] MEDS: DOCUSATE SODIUM 100 MG GELCAP PO SCH (09:43)
[2022-05-06] MEDS: NIFEdipine 30 MG TABER PO SCH (09:43)
[2022-05-06] MEDS ORDERED: MECL-231 PO (11:25)
[2022-05-06] MEDS ORDERED: NIFE30TA36 PO (11:25)
[2022-05-06] MEDS ORDERED: CEFU500T73 PO (11:26)
[2022-05-06] MEDS: NACL 0.9% 1,000 ML IV SCH (12:44)
[2022-05-06 15:01] VITALS: BP 154/75
== END 2022-05-06 15:36 | disposition home or self-care (01) ==
LOC: MED 19:06 → MTU 21:44 → INTOOBSV 21:44 → MTU 05-04 17:04
PROVIDERS: ADMIT Student in an Organized Health Care Education/Training Program; ATTEND Student in an Organized Health Care Education/Training Program
DX: I10 Essential (primary) hypertension (principal); Z20.822 Contact with and (suspected) exposure to COVID-19; N39.0 Urinary tract infection, site not specified; R42 Dizziness and giddiness; E78.5 Hyperlipidemia, unspecified; Z86.11 Personal history of tuberculosis; Z79.899 Other long term (current) drug therapy
CPT/HCPCS: 36415; 71045; 80048; 80053; 81001; 82948; 83605; 83735; 83880; 84484; 85025; 87040; 87081; 87086; 87426; 87804; 93005; 96361; 96365; 96366; 96367; 96372; 99285; G0378; J0696; J1644; J3475; J7030; J7060; J8597

== ENCOUNTER 2022-06-17 12:45 | Emergency (ER) | payer MEDICARE, OTHER ==
[~2022-06-17] VITALS: Ht 154.9 cm; Wt 61.2 kg
[~2022-06-17 12:45] MED LIST changes: +CEFU500T73 PO; +MECL-231 PO; +NIFE30TA36 PO; +SIMV-372 PO; -SIMV20TA1 PO
[2022-06-17 13:21] VITALS: BP 151/71
--- NOTE | 2022-06-17 13:55 | NUR ---
PT ASKING IF ITS OK TO LEAVE, WHEN THE DOCTOR IS GOING TO SEE THEM
--- NOTE | 2022-06-17 14:18 | NUR ---
PA PAYTON AT PT SIDE FOR EVAL
--- NOTE | 2022-06-17 14:25 | NUR ---
86 Y/O FEMALE BIB DAUGHTER PRESENTS TO THE ED WANTING TO BE CHECKED AFTER TESTING POSITIVE FOR COVID YESTERDAY. DENIES SOB, DENIES RESPIRATORY S/S, ONLY S/S IS LOSS OF TASTE NKA PMH: DM, HTN, HDL ONGOING TREATMENT FOR TB 4MONTHS
[2022-06-17] MEDS ORDERED: NIRM1TAB PO (14:44)
--- NOTE | 2022-06-17 15:06 | NUR ---
Patient discharged with v/s stable. Written and verbal after care instructions given and explained. Patient alert, oriented and verbalized understanding of instructions. Ambulatory with steady gait. All questions addressed prior to discharge. ID band removed. Patient advised to follow up with PMD. Rx of paxlovid given. Patient educated on indication of medication including possible reaction and side effects. Opportunity to ask questions provided and answered.
== END 2022-06-17 15:06 | disposition home or self-care (01) ==
LOC: MED 12:45
DX: U07.1 COVID-19 (principal); I10 Essential (primary) hypertension; Z79.899 Other long term (current) drug therapy; Z79.82 Long term (current) use of aspirin
CPT/HCPCS: 99283